=== PATIENT | female | born 1945 | race Caucasian/White ===

== ENCOUNTER → 2018-01-09 | Outpatient (CLI) | payer MEDICARE ==
[2018-01-09 13:26] LABS: Basophils % (A) 0 %; Eosinophils # (A) 0.1 k/uL (0-0.7); Eosinophils % (A) 1 %; HCT 42.8 % (34.0-46.0); Lymphocytes # (A) 0.6 k/uL (1.0-4.8); Lymphocytes % (A) 7 %; MCH 29.6 pg (25.0-35.0); MCHC 32.7 g/dL (31.0-37.0); MCV 90.6 fL (80.0-100.0); Monocytes # (A) 0.5 k/uL (0-1.0); Monocytes % (A) 6 %; Neutrophils # (A) 7.5 k/uL (1.3-7.7); Neutrophils % (A) 85 %; Platelet Count 379 k/uL (150-450); RBC 4.73 m/uL (3.80-5.40); RDW 12.1 % (11.5-15.5); WBC 8.8 k/uL (3.8-10.6)
[2018-01-09 13:34] LABS: ALT 18 U/L (9-52); AST 20 U/L (14-36); Blood Urea Nitrogen 9 mg/dL (7-17)
[2018-01-09 13:49] LABS: T4, Free (Free Thyroxine) 0.95 ng/dL (0.78-2.19)
== END | disposition home or self-care (01) ==
LOC: LABWHC1 11:50
PROVIDERS: ATTEND Dermatology
DX: L30.8 Other specified dermatitis (principal)
CPT/HCPCS: 36415; 82565; 84439; 84443; 84450; 84460; 84520; 85025

== ENCOUNTER → 2020-03-14 | Outpatient (CLI) | payer MEDICARE ==
--- NOTE | 2020-03-15 09:55 | XR ---
EXAMINATION TYPE: XR lumbosacral spine min 4V DATE OF EXAM: 03/14/2020 CLINICAL HISTORY: Increasing chronic low back pain TECHNIQUE: Frontal, lateral, and oblique images of the lumbar spine are obtained. COMPARISON: None FINDINGS: Grade 1 anterolisthesis of L4 on L5 is seen as well as very minimal grade 1 anterolisthesis of L3 on L4. There is a minimal compression deformity of L3 with vertebral body height loss of less than 10%. There is also a compression deformity of T12 with vertebral body height loss of approximate ly 40%. These are age-indeterminate without priors for comparison. Moderate degenerative change demon strated as intervertebral disc space narrowing, anterior osteophytes, and facet arthropathy with endp late sclerosis at L5-S1. There is diffuse osseous demineralization. Moderate atherosclerosis of the a bdominal aorta. IMPRESSION: 1. Age indeterminant compression deformities of T12 and L3. Correlate for point tenderness. 2. Multilevel malalignment likely on a degenerative basis with moderate degenerative disc disease of the lumbar spine. 3. Diffuse osseous demineralization. A Yellow level critical message alert has been initiated for NATALI Ward via the [employer] Critical Results System on 03/15/2020 9:53 AM. This message alert has been sent to NATALI Ward via the preferences provided by the clinician for the receipt of Radiology Critical Find ings. Message ID [id number].
== END | disposition home or self-care (01) ==
LOC: RADXRYALE 15:26
PROVIDERS: ATTEND Physician Assistant Medical
DX: M54.5 Low back pain (principal); R53.1 Weakness
CPT/HCPCS: 72110

== ENCOUNTER 2021-12-08 16:14 | Inpatient (IN) | payer MEDICARE ==
--- NOTE | 2021-12-08 17:51 | ED ---
Altered Mental Status HPI - General Chief Complaint: Altered Mental Status Stated Complaint: altered mental status, weakness Source: patient, EMS Mode of arrival: EMS Limitations: altered mental status - History of Present Illness Initial Comments: 76-year-old female who does not see a primary care doctor resents to the emergency department for confusion. The patient's daughter helps provide the history. States that she last saw her mom at 7:30 yesterday. The patient does live alone. States that she has been more confused over the past couple of months however normally alert and oriented 4. She attempted to contact her mother earlier today and was having difficulty. She then called police who did a well check and found the patient on the floor. Unknown how long the patient had been down for. Patient denies hitting her head or losing consciousness. He cannot describe to me why she was unable to get up on her own. She denies any injuries from the fall. Denies any syncope. She does not see a physician and therefore has no known medical problems. Does not take any home medications. The remainder of the HPI is unable to be obtained as the patient is confused - Related Data Previous Rx's Medication Instructions Recorded Magnesium Oxide [Mag-Ox] 400 mg PO BID #6 tablet 12/11/21 Potassium Chloride ER [K-Dur 20] 20 meq PO DAILY #3 tab 12/11/21 QUEtiapine [SEROquel] 12.5 mg PO HS PRN #0 tab 12/11/21 Sertraline [Zoloft] 25 mg PO DAILY #0 tab 12/11/21 Famotidine [Pepcid] 20 mg PO DAILY tab 12/12/21 Allergies Allergy/AdvReac Type Severity Reaction Status Date / Time No Known Allergies Allergy Verified 12/08/21 17:23 Review of Systems ROS Statement: Those systems with pertinent positive or pertinent negative responses have been documented in the HPI. ROS Other: All systems not noted in ROS Statement are negative. Past Medical History Past Medical History: Unable to Obtain History of Any Multi-Drug Resistant Organisms: None Reported Past Surgical History: Unable to Obtain Past Psychological History: No Psychological Hx Reported Smoking Status: Never smoker Past Alcohol Use History: Occasional Past Drug Use History: None Reported General Exam Limitations: altered mental status General appearance: alert, in no apparent distress, other (dissheveled) Head exam: Present: atraumatic, normocephalic, normal inspection Eye exam: Present: normal appearance, PERRL, EOMI. Absent: scleral icterus, conjunctival injection, periorbital swelling ENT exam: Present: normal exam, mucous membranes moist Neck exam: Present: normal inspection. Absent: tenderness, meningismus, lymphadenopathy Respiratory exam: Present: normal lung sounds bilaterally. Absent: respiratory distress, wheezes, rales, rhonchi, stridor Cardiovascular Exam: Present: regular rate, normal rhythm, normal heart sounds. Absent: systolic murmur, diastolic murmur, rubs, gallop, clicks GI/Abdominal exam: Present: soft, normal bowel sounds. Absent: distended, tenderness, guarding, rebound, rigid Extremities exam: Present: normal inspection, full ROM, normal capillary refill. Absent: tenderness, pedal edema, joint swelling, calf tenderness Back exam: Present: normal inspection Neurological exam: Present: alert, CN II-XII intact Psychiatric exam: Present: normal affect, normal mood Skin exam: Present: warm, dry, intact, normal color. Absent: rash Course Vital Signs 12/08/21 12/08/21 16:44 22:30 Temperature 98.3 F Pulse Rate 94 94 Respiratory 18 18 Rate Blood Pressure 169/95 161/82 O2 Sat by Pulse 99 99 Oximetry Medical Decision Making - Medical Decision Making Upon arrival patient was placed in room 3. A thorough history and physical exam was performed. Patient is saturated in feces and urine. The daughter does state that the patient has had issues with incontinence over the past couple of months. IV access was established laboratory studies were conducted. Patient hyponatremic at 124. Daughter states that the patient has a very poor appetite and hardly ever eats. Albumin slightly low at 3.4. Chest x-ray as well as a CT of the brain is performed. Chest x-ray demonstrates cerebral atrophy with no acute abnormality. Chest x-ray demonstrates small pleural effusions. Did recommend admission as it does not appear that the patient can care for herself. Normal saline is ordered for treatment of her hypernatremia. Spoke with Sia from [facility] who will admit the patient. Patient remained in stable conditio n awaiting a bed on the floor - Lab Data Result diagrams: 12/09/21 04:24 12/12/21 05:39 Lab Results 12/08/21 12/08/21 12/08/21 Range/Units 17:43 17:43 17:43 WBC 10.8 H (3.8-10.6) k/uL RBC 4.26 (3.80-5.40) m/uL Hgb 13.0 (11.4-16.0) gm/dL Hct 37.1 (34.0-46.0) % MCV 87.2 (80.0-100.0) fL MCH 30.4 (25.0-35.0) pg MCHC 34.9 (31.0-37.0) g/dL RDW 13.1 (11.5-15.5) % Plt Count 374 (150-450) k/uL MPV 6.4 Neutrophils % 89 % Lymphocytes % 5 % Monocytes % 4 % Eosinophils % 1 % Basophils % 0 % Neutrophils # 9.6 H (1.3-7.7) k/uL Lymphocytes # 0.6 L (1.0-4.8) k/uL Monocytes # 0.5 (0-1.0) k/uL Eosinophils # 0.1 (0-0.7) k/uL Basophils # 0.0 (0-0.2) k/uL PT 10.4 (9.0-12.0) sec INR 0.9 (<1.2) APTT 23.5 (22.0-30.0) sec Sodium (137-145) mmol/L Potassium (3.5-5.1) mmol/L Chloride (98-107) mmol/L Carbon Dioxide (22-30) mmol/L Anion Gap mmol/L BUN (7-17) mg/dL Creatinine (0.52-1.04) mg/dL Est GFR (CKD-EPI)AfAm (>60 ml/min/1.73 sqM) Est GFR (CKD-EPI)NonAf (>60 ml/min/1.73 sqM) Glucose (74-99) mg/dL Calcium (8.4-10.2) mg/dL Total Bilirubin (0.2-1.3) mg/dL AST (14-36) U/L ALT (4-34) U/L Alkaline Phosphatase (38-126) U/L Ammonia (<30) umol/L Creatine Kinase (30-135) U/L Troponin I (0.000-0.034) ng/mL Total Protein (6.3-8.2) g/dL Albumin (3.5-5.0) g/dL TSH (0.465-4.680) mIU/L Urine Color Colorless Urine Appearance Clear (Clear) Urine pH 6.5 (5.0-8.0) Ur Specific [place] 1.002 (1.001-1.035) Urine Protein Negative (Negative) Urine Glucose (UA) Negative (Negative) Urine Ketones Trace H (Negative) Urine Blood Negative (Negative) Urine Nitrite Negative (Negative) Urine Bilirubin Negative (Negative) Urine Urobilinogen <2.0 (<2.0) mg/dL Ur Leukocyte Esterase Negative (Negative) Urine Opiates Screen Not Detected (NotDetected) Ur Oxycodone Screen Not Detected (NotDetected) Urine Methadone Screen Not Detected (NotDetected) Ur Propoxyphene Screen Not Detected (NotDetected) Acetaminophen ug/mL Ur Barbiturates Screen Not Detected (NotDetected) U Tricyclic Antidepress Not Detected (NotDetected) Ur Phencyclidine Scrn Not Detected (NotDetected) Ur Amphetamines Screen Not Detected (NotDetected) U Methamphetamines Scrn Not Detected (NotDetected) U Benzodiazepines Scrn Not Detected (NotDetected) Urine Cocaine Screen Not Detected (NotDetected) U Marijuana (THC) Screen Not Detected (NotDetected) Serum Alcohol mg/dL 12/08/21 12/08/21 12/08/21 Range/Units 17:43 17:43 17:43 WBC (3.8-10.6) k/uL RBC (3.80-5.40) m/uL Hgb (11.4-16.0) gm/dL Hct (34.0-46.0) % MCV (80.0-100.0) fL MCH (25.0-35.0) pg MCHC (31.0-37.0) g/dL RDW (11.5-15.5) % Plt Count (150-450) k/uL MPV Neutrophils % % Lymphocytes % % Monocytes % % Eosinophils % % Basophils % % Neutrophils # (1.3-7.7) k/uL Lymphocytes # (1.0-4.8) k/uL Monocytes # (0-1.0) k/uL Eosinophils # (0-0.7) k/uL Basophils # (0-0.2) k/uL PT (9.0-12.0) sec INR (<1.2) APTT (22.0-30.0) sec Sodium 124 L (137-145) mmol/L Potassium 3.6 (3.5-5.1) mmol/L Chloride 98 (98-107) mmol/L Carbon Dioxide 16 L (22-30) mmol/L Anion Gap 10 mmol/L BUN 5 L (7-17) mg/dL Creatinine 0.45 L (0.52-1.04) mg/dL Est GFR (CKD-EPI)AfAm >90 (>60 ml/min/1.73 sqM) Est GFR (CKD-EPI)NonAf >90 (>60 ml/min/1.73 sqM) Glucose 96 (74-99) mg/dL Calcium 8.0 L (8.4-10.2) mg/dL Total Bilirubin 1.5 H (0.2-1.3) mg/dL AST 29 (14-36) U/L ALT 12 (4-34) U/L Alkaline Phosphatase 76 (38-126) U/L Ammonia <9 (<30) umol/L Creatine Kinase 457 H (30-135) U/L Troponin I 0.013 (0.000-0.034) ng/mL Total Protein 6.4 (6.3-8.2) g/dL Albumin 3.4 L (3.5-5.0) g/dL TSH 1.400 (0.465-4.680) mIU/L Urine Color Urine Appearance (Clear) Urine pH (5.0-8.0) Ur Specific [place] (1.001-1.035) Urine Protein (Negative) Urine Glucose (UA) (Negative) Urine Ketones (Negative) Urine Blood (Negative) Urine Nitrite (Negative) Urine Bilirubin (Negative) Urine Urobilinogen (<2.0) mg/dL Ur Leukocyte Esterase (Negative) Urine Opiates Screen (NotDetected) Ur Oxycodone Screen (NotDetected) Urine Methadone Screen (NotDetected) Ur Propoxyphene Screen (NotDetected) Acetaminophen <10.0 ug/mL Ur Barbiturates Screen (NotDetected) U Tricyclic Antidepress (NotDetected) Ur Phencyclidine Scrn (NotDetected) Ur Amphetamines Screen (NotDetected) U Methamphetamines Scrn (NotDetected) U Benzodiazepines Scrn (NotDetected) Urine Cocaine Screen (NotDetected) U Marijuana (THC) Screen (NotDetected) Serum Alcohol <10 mg/dL - EKG Data EKG Comments: EKG demonstrates sinus rhythm with a rate of 92. GA interval 164. Rest 90. QTC of 425. No acute ST segment elevations or depressions concerning for ischemic changes. Disposition Clinical Impression: Fall, Hyponatremia, Encephalopathy Disposition: ADMITTED IP TO THIS [facility] Condition: Stable Is patient prescribed a controlled substance at d/c from ED?: No Decision to Admit Reason: Admit from EC Decision Date: 12/08/21 Decision Time: 21:57
[2021-12-08 18:00] LABS: Basophils % (A) 0 %; Eosinophils # (A) 0.1 k/uL (0-0.7); Eosinophils % (A) 1 %; HCT 37.1 % (34.0-46.0); Lymphocytes # (A) 0.6 k/uL (1.0-4.8); Lymphocytes % (A) 5 %; MCH 30.4 pg (25.0-35.0); MCHC 34.9 g/dL (31.0-37.0); MCV 87.2 fL (80.0-100.0); Mean Platelet Volume 6.4; Monocytes # (A) 0.5 k/uL (0-1.0); Monocytes % (A) 4 %; Neutrophils # (A) 9.6 k/uL (1.3-7.7); Neutrophils % (A) 89 %; Platelet Count 374 k/uL (150-450); RBC 4.26 m/uL (3.80-5.40); RDW 13.1 % (11.5-15.5); WBC 10.8 k/uL (3.8-10.6)
--- NOTE | 2021-12-08 18:07 | XR ---
EXAMINATION TYPE: XR chest 2V DATE OF EXAM: 12/08/2021 COMPARISON: NONE HISTORY: Altered mental status TECHNIQUE: 2 views FINDINGS: There is no heart failure nor confluent pneumonic infiltrate. There is slight blunting of t he costophrenic angles. Thoracic aorta is atheromatous. There are chest leads. IMPRESSION: There are small pleural effusions. No heart failure seen. No pulmonary consolidation.
[2021-12-08 18:08] LABS: ALT 12 U/L (4-34); AST 29 U/L (14-36); Acetaminophen <10.0 ug/mL; African American GFR (CKD) >90 (>60 ml/min/1.73 sqM); Albumin 3.4 g/dL (3.5-5.0); Alcohol <10 mg/dL; Alkaline Phosphatase 76 U/L (38-126); Anion Gap 10 mmol/L; Blood Urea Nitrogen 5 mg/dL (7-17); Carbon Dioxide 16 mmol/L (22-30); Chloride 98 mmol/L (98-107); Creatine Kinase 457 U/L (30-135); Glucose 96 mg/dL (74-99); Non-African American GFR(CKD) >90 (>60 ml/min/1.73 sqM); Potassium 3.6 mmol/L (3.5-5.1); Sodium 124 mmol/L (137-145); Total Bilirubin 1.5 mg/dL (0.2-1.3); Total Protein 6.4 g/dL (6.3-8.2)
[2021-12-08 18:09] LABS: INR 0.9 (<1.2); Partial Thromboplastin Time 23.5 sec (22.0-30.0); Prothrombin Time 10.4 sec (9.0-12.0)
--- NOTE | 2021-12-08 18:48 | CT ---
EXAMINATION TYPE: CT brain jeannine singh con DATE OF EXAM: 12/08/2021 COMPARISON: None HISTORY: Altered mental status and fall. CT DLP: 1221.7 mGycm Automated exposure control for dose reduction was used. There is cerebral cortical atrophy. There is no mass effect or midline shift. There is no evidence of intracranial hemorrhage. The calvarium is intact. There is mucous retention cyst right maxillary sin us. Skull base is intact. There is normal aeration of the mastoid sinuses. The cervical vertebra have normal alignment. Posterior elements are intact. There is no compression f racture. There is minor spurring in the cervical spine. IMPRESSION: Cerebral atrophy. No acute intracranial abnormality. Minor degenerative changes in the cervical spine . No fracture.
[2021-12-08] MEDS ORDERED: SODIUM CHLORIDE 0.9% 1,000 ML IV ONE (18:54)
[2021-12-08 19:51] LABS: Appearance,Urine Clear (Clear); Bilirubin,Urine Negative (Negative); Blood,Urine Negative (Negative); Color,Urine Colorless; Glucose,Urine (UA) Negative (Negative); Ketones,Urine Trace (Negative); Leukocyte Esterase,Urine Negative (Negative); Nitrite,Urine Negative (Negative); PH, Urine 6.5 (5.0-8.0); Protein,Urine Negative (Negative); Specific Gravity,Urine 1.002 (1.001-1.035); Urobilinogen,Urine <2.0 mg/dL (<2.0)
[2021-12-08 20:00] LABS: Amphetamine Screen,Urine Not Detected (NotDetected); Barbiturate Screen,Urine Not Detected (NotDetected); Benzodiazepines Screen,Urine Not Detected (NotDetected); Cocaine Screen,Urine Not Detected (NotDetected); Methadone Screen, Urine Not Detected (NotDetected); Opiate Screen,Urine Not Detected (NotDetected); Oxycodone Screen, Urine Not Detected (NotDetected); Phencyclidine Screen,Urine Not Detected (NotDetected); Tricyclic Antidepressant,Urine Not Detected (NotDetected); Urn Cannabinoid Scrn Not Detected (NotDetected)
[2021-12-08] MEDS: SODIUM CHLORIDE 0.9% 1,000 ML IV SCH (21:28)
[2021-12-08] MEDS ORDERED: NALOXONE 0.4 MG/ML 1 ML VIAL IV PRN (21:57)
[2021-12-09 05:15] LABS: Basophils % (A) 0 %; Eosinophils # (A) 0.1 k/uL (0-0.7); Eosinophils % (A) 2 %; HCT 32.9 % (34.0-46.0); HGB 11.5 gm/dL (11.4-16.0); Lymphocytes # (A) 0.9 k/uL (1.0-4.8); Lymphocytes % (A) 16 %; MCH 31.2 pg (25.0-35.0); MCHC 35.1 g/dL (31.0-37.0); MCV 88.9 fL (80.0-100.0); Mean Platelet Volume 6.8; Monocytes # (A) 0.5 k/uL (0-1.0); Monocytes % (A) 8 %; Neutrophils # (A) 4.1 k/uL (1.3-7.7); Neutrophils % (A) 72 %; Platelet Count 358 k/uL (150-450); RDW 12.4 % (11.5-15.5); WBC 5.7 k/uL (3.8-10.6)
[2021-12-09 05:50] LABS: African American GFR (CKD) >90 (>60 ml/min/1.73 sqM); Anion Gap 7 mmol/L; Blood Urea Nitrogen 4 mg/dL (7-17); Calcium 8.4 mg/dL (8.4-10.2); Carbon Dioxide 18 mmol/L (22-30); Chloride 107 mmol/L (98-107); Glucose 81 mg/dL (74-99); Non-African American GFR(CKD) >90 (>60 ml/min/1.73 sqM); Potassium 3.5 mmol/L (3.5-5.1); Sodium 132 mmol/L (137-145)
[2021-12-09] MEDS: SODIUM CHLORIDE 0.9% 1,000 ML IV SCH ×2 (08:33→11:59)
--- NOTE | 2021-12-09 11:51 | P.HPIM ---
History of Present Illness Patient is a pleasant 78-year-old female came in with a mechanical fall without any syncopal episode. Patient usually lives by herself but was found by family members after she fell. Patient was brought to ER. Apparently patient was confused as per the family members although by the time of ER physician evaluation patient is alert oriented 4. Patient is found to be hyponatremic because of which patient was admitted. Patient denied any diarrhea nausea vomiting at this time. Patient did denied any fever intake but patient used to drink 10-15 beers which she quit about 3 months ago. Patient did denied any previous history denied any smoking history. Patient does have long nails which tells me that patient probably is not taking care of for herself very well. Rest of the workup including imaging studies for any fractures post fall are all negative. REVIEW OF SYSTEMS: CONSTITUTIONAL: No fever, no malaise, no fatigue. HEENT: No recent visual problems or hearing problems. Denied any sore throat. CARDIOVASCULAR: No chest pain, orthopnea, PND, no palpitations, no syncope. PULMONARY: No shortness of breath, no cough, no hemoptysis. GASTROINTESTINAL: No diarrhea, no nausea, no vomiting, no abdominal pain. NEUROLOGICAL: No headaches, no weakness, no numbness. HEMATOLOGICAL: Denies any bleeding or petechiae. GENITOURINARY: Denies any burning micturition, frequency, or urgency. MUSCULOSKELETAL/RHEUMATOLOGICAL: Denies any joint pain, swelling, or any muscle pain. ENDOCRINE: Denies any polyuria or polydipsia. The rest of the 14-point review of systems is negative. PHYSICAL EXAMINATION: GENERAL: The patient is alert and oriented x3, not in any acute distress. Well developed, well nourished. HEENT: Pupils are round and equally reacting to light. EOMI. No scleral icterus. No conjunctival pallor. Normocephalic, atraumatic. No pharyngeal erythema. No thyromegaly. CARDIOVASCULAR: S1 and S2 present. No murmurs, rubs, or gallops. PULMONARY: Chest is clear to auscultation, no wheezing or crackles. ABDOMEN: Soft, nontender, nondistended, normoactive bowel sounds. No palpable organomegaly. MUSCULOSKELETAL: No joint swelling or deformity. EXTREMITIES: No cyanosis, clubbing, or pedal edema. NEUROLOGICAL: Gross neurological examination did not reveal any focal deficits. SKIN: No rashes. Assessment and plan 1 hyponatremia probably secondary to hypovolemia and a competent of beer pot amania, serum sodium improved by about 8 points since yesterday from 124 to 130 because of which I'm slowing down on IV normal saline to prevent central pontine myelenolysis. -Generalized weakness: Physical therapy and occupational therapy evaluation -History of alcohol use: DVT prophylaxis: Lovenox Past Medical History Past Medical History: Unable to Obtain History of Any Multi-Drug Resistant Organisms: None Reported Past Surgical History: Unable to Obtain Past Psychological History: No Psychological Hx Reported Smoking Status: Never smoker Past Alcohol Use History: Occasional Past Drug Use History: None Reported Medications and Allergies Home Medications Medication Instructions Recorded Confirmed Type No Known Home Medications 12/08/21 12/08/21 History Allergies Allergy/AdvReac Type Severity Reaction Status Date / Time No Known Allergies Allergy Verified 12/08/21 17:23 Physical Exam Vitals: Vital Signs Temp Pulse Pulse Resp BP BP Pulse Ox 12/09/21 07:11 98.2 F 89 17 133/69 99 12/09/21 01:05 98.4 F 99 17 180/83 99 12/08/21 22:30 94 18 161/82 99 12/08/21 16:44 98.3 F 94 18 169/95 99 Intake and Output 12/08/21 12/09/21 12/09/21 22:59 06:59 14:59 Intake Total 1800 Output Total 100 Balance 1800 -100 Intake: Intake, IV Titration 900 Amount Sodium Chloride 0.9% 1, 900 000 ml @ 75 mls/hr IV . [id number] [facility] Rx#:[id number] Oral 900 Output: Urine 100 Uretheral (Lopez) 100 Other: Voiding Method Indwelling Catheter Weight 54.885 kg Results CBC & Chem 7: 12/09/21 04:24 12/09/21 04:24 Labs: Abnormal Lab Results - Last 24 Hours (Table) 12/08/21 12/08/21 12/08/21 Range/Units 17:43 17:43 17:43 WBC 10.8 H (3.8-10.6) k/uL RBC (3.80-5.40) m/uL Hct (34.0-46.0) % Neutrophils # 9.6 H (1.3-7.7) k/uL Lymphocytes # 0.6 L (1.0-4.8) k/uL Sodium 124 L (137-145) mmol/L Carbon Dioxide 16 L (22-30) mmol/L BUN 5 L (7-17) mg/dL Creatinine 0.45 L (0.52-1.04) mg/dL Calcium 8.0 L (8.4-10.2) mg/dL Total Bilirubin 1.5 H (0.2-1.3) mg/dL Creatine Kinase 457 H (30-135) U/L Albumin 3.4 L (3.5-5.0) g/dL Urine Ketones Trace H (Negative) 12/09/21 12/09/21 Range/Units 04:24 04:24 WBC (3.8-10.6) k/uL RBC 3.70 L (3.80-5.40) m/uL Hct 32.9 L (34.0-46.0) % Neutrophils # (1.3-7.7) k/uL Lymphocytes # 0.9 L (1.0-4.8) k/uL Sodium 132 L (137-145) mmol/L Carbon Dioxide 18 L (22-30) mmol/L BUN 4 L (7-17) mg/dL Creatinine (0.52-1.04) mg/dL Calcium (8.4-10.2) mg/dL Total Bilirubin (0.2-1.3) mg/dL Creatine Kinase (30-135) U/L Albumin (3.5-5.0) g/dL Urine Ketones (Negative)
[2021-12-09] MEDS: SERTRALINE 25 MG TAB PO SCH (12:27)
[2021-12-10] MEDS: SERTRALINE 25 MG TAB PO SCH (08:23)
[2021-12-10] MEDS: ENOXAPARIN 40 MG/0.4 ML SYRINGE SQ SCH (08:23)
[2021-12-10] MEDS: SODIUM CHLORIDE 0.9% 1,000 ML IV SCH (08:23)
[2021-12-10 08:56] LABS: African American GFR (CKD) 107.4 (60.0-200.0); Anion Gap 13.7 mmol/L (10.00-18.00); BUN/Creat Ratio 6.2 Ratio (12.00-20.00); Blood Urea Nitrogen 3.1 mg/dL (9.0-27.0); Calcium 8.6 mg/dL (8.7-10.3); Carbon Dioxide 16.3 mmol/L (20.0-27.5); Non-African American GFR(CKD) 92.7 (60.0-200.0); Potassium 3.6 mmol/L (3.5-5.5)
[2021-12-10] MEDS ORDERED: QUEtiapine 25 MG TAB PO PRN (10:35)
--- NOTE | 2021-12-10 10:35 | P.HPIM ---
History of Present Illness Patient is a pleasant 78-year-old female came in with a mechanical fall without any syncopal episode. Patient usually lives by herself but was found by family members after she fell. Patient was brought to ER. Apparently patient was confused as per the family members although by the time of ER physician evaluation patient is alert oriented 4. Patient is found to be hyponatremic because of which patient was admitted. Patient denied any diarrhea nausea vomiting at this time. Patient did denied any fever intake but patient used to drink 10-15 beers which she quit about 3 months ago. Patient did denied any previous history denied any smoking history. Patient does have long nails which tells me that patient probably is not taking care of for herself very well. Rest of the workup including imaging studies for any fractures post fall are all negative. 12/10/2021 Patient is alert oriented 2 looks bit better than yesterday. Patient's hyponatremia improved and presently serum sodium is 134 continue with gentle hy dration. Physical therapy and occupational therapy evaluation pending patient probably will need placement at subacute rehabitation. Constitutional: Denied any fatigue denied any fever. Cardio vascular: denied any chest pain, palpitations Gastrointestinal denied any nausea vomiting Pulmonary: Denied any shortness of breath cough Neurologic denied any new focal deficits All inpatient medications were reviewed and appropriate changes in these medications as dictated in the interval history and assessment and plan. PHYSICAL EXAMINATION: GENERAL: The patient is alert and oriented x2, not in any acute distress. Well developed, well nourished. HEENT: Pupils are round and equally reacting to light. EOMI. No scleral icterus. No conjunctival pallor. Normocephalic, atraumatic. No pharyngeal erythema. No thyromegaly. CARDIOVASCULAR: S1 and S2 present. No murmurs, rubs, or gallops. PULMONARY: Chest is clear to auscultation, no wheezing or crackles. ABDOMEN: Soft, nontender, nondistended, normoactive bowel sounds. No palpable organomegaly. MUSCULOSKELETAL: No joint swelling or deformity. EXTREMITIES: No cyanosis, clubbing, or pedal edema. NEUROLOGICAL: Gross neurological examination did not reveal any focal deficits. SKIN: No rashes. 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 -Generalized weakness: Physical therapy and occupational therapy evaluation -History of alcohol use: DVT prophylaxis: Lovenox Past Medical History Past Medical History: Unable to Obtain History of Any Multi-Drug Resistant Organisms: None Reported Past Surgical History: Unable to Obtain Past Psychological History: No Psychological Hx Reported Smoking Status: Never smoker Past Alcohol Use History: Occasional Past Drug Use History: None Reported Medications and Allergies Home Medications Medication Instructions Recorded Confirmed Type No Known Home Medications 12/08/21 12/08/21 History Allergies Allergy/AdvReac Type Severity Reaction Status Date / Time No Known Allergies Allergy Verified 12/08/21 17:23 Physical Exam Vitals: Vital Signs Temp Pulse Resp BP Pulse Ox 12/10/21 07:07 98.2 F 71 18 168/75 99 12/10/21 02:00 98.7 F 66 16 157/67 95 12/09/21 19:08 98.1 F 80 16 150/69 99 12/09/21 13:02 97.3 F L 74 18 128/62 99 Intake and Output 12/09/21 12/10/21 12/10/21 22:59 06:59 14:59 Intake Total 650 Output Total 350 950 Balance 300 -950 Intake: Intake, IV Titration 650 Amount Sodium Chloride 0.9% 1, 650 000 ml @ 50 mls/hr IV . Q20H [facility] Rx#:[id number] Output: Urine 350 950 Uretheral (Lopez) 350 Other: Voiding Method Indwelling Catheter Indwelling Catheter Results CBC & Chem 7: 12/09/21 04:24 12/10/21 03:03 Labs: Abnormal Lab Results - Last 24 Hours (Table) 12/10/21 Range/Units 03:03 Sodium 134 L (135-145) mmol/L Carbon Dioxide 16.3 L (20.0-27.5) mmol/L BUN 3.1 L (9.0-27.0) mg/dL Creatinine 0.5 L (0.6-1.5) mg/dL BUN/Creatinine Ratio 6.20 L (12.00-20.00) Ratio Calcium 8.6 L (8.7-10.3) mg/dL
[2021-12-11] MEDS: SODIUM CHLORIDE 0.9% 1,000 ML IV SCH ×2 (05:27→12:08)
[2021-12-11] MEDS: ENOXAPARIN 40 MG/0.4 ML SYRINGE SQ SCH (07:50)
[2021-12-11] MEDS: SERTRALINE 25 MG TAB PO SCH (07:50)
[2021-12-11] MEDS ORDERED: Magnesium Replacement Protocol 1 EACH MISC MISCELLANE PRN (08:54)
[2021-12-11] MEDS: MAGNESIUM SULFATE-D5W PMX 1 GM in DEXTROSE/WATER 1 100ML.BAG IVPB SCH ×2 (12:11→14:19)
[2021-12-11] MEDS ORDERED: POTASSIUM CHLORIDE ER 20 MEQ TAB.ER PO STA (12:11)
--- NOTE | 2021-12-11 12:28 | P.DS ---
Providers Date of admission: 12/08/21 21:57 Attending physician: Bee Troy Primary care physician: Geronimo Rios Hospital Course: Final Diagnosis -Hyponatremia probably secondary to hypovolemia with a component of beer potamania, sodium 135 -Altered mental status on admission possibly due to a baseline mild dementia with history of chronic alcohol abuse, patient alert x2 today -Generalized weakness: Will be discharged to subacute rehab -History of chronic alcohol abuse, currently denies any recent drinking -Full Code Discharge Disposition Patient stable today for discharge to subacute rehab with repeat electrolytes completed in 2 days. Hospital Course This is a pleasant 76-year-old female who presents to the hospital from EMS with acute confusion. The patient does not usually follow with a primary care doctor, per the patient's daughter she had last seen her mom on the evening of December 07 and she is usually alert and oriented 4 however she has been having increased confusion over the last couple of months. The patient's daughter was unable to get ahold of her mother placed in a well check and found the patient on the floor with an unknown how long patient had been down for her. Patient denies hitting her head or losing consciousness she cannot get up on her own. Patient denies any injuries from the fall denied any syncope. Patient is not currently on any home medications. Past medical history significant for chronic alcohol abuse with 10-12 beers per day, recently stopped about 3 months ago, and patient verbalizes she is currently not drinking any alcohol. Patient remains a poor historian. Diagnostics include: Chest x-ray shows small pleural effusion with no heart failure and no pulmonary consolidation. CT brain C-spine shows cerebral atrophy with no acute intracranial abnormality. There are many minor degenerative changes in the cervical spine with no fracture. EKG shows sinus rhythm with a heart rate of 92, QT interval [address] or T- wave abnormalities present. Urinalysis is negative for infection Labs on admission show a white count 10.8, sodium 124, CO2 16, BUN 5, creatinine 0.45, blood glucose in the 90s, A1c 5.4, magnesium 1.6, total bili 1.5, creatinine kinase 457, troponin negative, TSH 1.400, urine drug toxicology negative, serum alcohol less than 10. Patient was monitored and initiated on gentle hydration with 0.9 normal saline and sodium level has since improved to 135. 12/11/2021 Patient underwent physical therapy evaluation today who is recommending subacute rehab with 29/04 care. Patient evaluated today resting in bed, no acute events overnight. She is alert and able to state name, date of , and the year. Slightly confused about location, but knew she was not at home. Patient was sleeping though prior to assessment. Vitals are stable today, afebrile, heart rate 77, blood pressure 151/71, 98% on room air. She denies any chest pain, shortness of breath, abdominal pain. Patient has been eating about 50% of her meals and would benefit from ensure protein drinks for additional nutritional support. Most recent labs show sodium level increased to 135 with gentle hydration and patient will have this rechecked in 2 days. Continue to encourage oral intake. Also potassium 3.6, magnesium 1.6, patient received supplementation today and 3 more days of oral supplementation with repeat labs in 2 days. Patient was also on small dose of sertraline in the past which was restarted this admission as well as a small dose of seroquel at bedtime. Lungs are clear, S1, S2 auscultated, abdomen is soft and nontender, focal neurological exam is negative. Patient may be discharged to subacute rehab today. Please see medication reconciliation for a list of current medications. Thank you for allowing us to participate in the care of this patient. Patient Condition at Discharge: Stable Plan - Discharge Summary Discharge Rx Participant: Yes New Discharge Prescriptions: New Potassium Chloride ER [K-Dur 20] 20 meq PO DAILY #3 tab Magnesium Oxide [Mag-Ox] 400 mg PO BID #6 tablet QUEtiapine [SEROquel] 12.5 mg PO HS PRN #0 tab PRN Reason: Agitation Sertraline [Zoloft] 25 mg PO DAILY #0 tab Discharge Medication List Magnesium Oxide [Mag-Ox] 400 mg PO BID #6 tablet 12/11/21 [Rx] Potassium Chloride ER [K-Dur 20] 20 meq PO DAILY #3 tab 12/11/21 [Rx] QUEtiapine [SEROquel] 12.5 mg PO HS PRN #0 tab 12/11/21 [Rx] Sertraline [Zoloft] 25 mg PO DAILY #0 tab 12/11/21 [Rx] Follow up Appointment(s)/Referral(s): Geronimo Rios DO [Primary Care Provider] - 1-2 days Ambulatory/Diagnostic Orders: Basic Metabolic Panel [LAB.AMB] Time Frame: 2 Days, Location: None Selected Magnesium [LAB.AMB] Time Frame: 2 Days, Location: None Selected Activity/Diet/Wound Care/Special Instructions: Repeat metabolic panel in 2 days Continue oral potassium, oral magnesium supplementation, adjust with repeated labs as needed. Discharge Disposition: TRANSFER TO SNF/ECF
[2021-12-12 07:35] VITALS: BP 167/90; PULSE 77; RESP 17; TEMP 98.6
[2021-12-12] MEDS: ENOXAPARIN 40 MG/0.4 ML SYRINGE SQ SCH (08:01)
[2021-12-12] MEDS: SODIUM CHLORIDE 0.9% 1,000 ML IV SCH (08:01)
[2021-12-12] MEDS: SERTRALINE 25 MG TAB PO SCH (08:01)
[2021-12-12] MEDS ORDERED: FAMOTIDINE 20 MG TAB PO SCH (09:00)
[2021-12-12 09:37] LABS: African American GFR (CKD) 101.2 (60.0-200.0); Anion Gap 11.6 mmol/L (10.00-18.00); BUN/Creat Ratio 5.17 Ratio (12.00-20.00); Blood Urea Nitrogen 3.1 mg/dL (9.0-27.0); Calcium 8.5 mg/dL (8.7-10.3); Carbon Dioxide 20.4 mmol/L (20.0-27.5); Magnesium 1.9 mg/dL (1.5-2.4); Non-African American GFR(CKD) 87.3 (60.0-200.0); Potassium 3.9 mmol/L (3.5-5.5)
--- NOTE | 2021-12-12 13:03 | P.DS ---
Providers Date of admission: 12/08/21 21:57 Expected date of discharge: 12/12/21 Attending physician: Bee Troy Primary care physician: Geronimo Delacruz Hospital Course: Final diagnosis -Hyponatremia probably secondary to hypovolemia with a component of beer potamania, sodium 135 -Altered mental status on admission possibly due to a baseline mild dementia with history of chronic alcohol abuse -Generalized weakness -History of chronic alcohol abuse, recently quit drinking 3 months ago -Full Code Discharge disposition Patient is being discharged in a stable condition with guarded prognosis to [facility] for continued PT/OT therapy. Patient to follow with Dr. Solomon at [facility]. Patient will follow-up with Dr. Delacruz in the outpatient setting upon discharge from [facility]. Recommend repeat labs in 2-3 days to monitor kidney functions and electrolytes. Total time taken is greater than 35 minutes. Hospital course This is a 76-year-old female who was recently admitted to the hospital for acute confusion and being closely monitored. Per daughter patient has been having increasing confusion that has been going on for the last few months and having increasing confusion along with weakness and has been falling.. Patient most recently stopped drinking alcohol a few months back and was significant for chronic alcohol abuse daily. Patient has been evaluated by physical therapy recommending subacute rehab and patient was accepted at [facility] pending insurance authorization. Authorization has been obtained and patient will be discharged to [facility] today for continued PT/OT therapy. Recommend outpatient labs to monitor electrolytes, magnesium, kidney functions closely. Patient to follow-up with primary care provider on discharge in the outpatient setting. Patient reports to continuing to feel weak but has reported an improvement in diet although continues to eat very little. Patient needs encouragement with eating. Patient was also admitted with hyponatremia and has improved and is currently 135. Currently no reports of chest pain, shortness of breath, or palpitations. Patient is afebrile. No reports of nausea or vomiting and patient is tolerating diet. Patient will be discharged to [facility] today. Guarded prognosis On exam vital signs are stable. Cardio S1, S2 are muffled. Respiratory system shows diminished breath sounds at the bases with no wheezing or rhonchi noted. Abdomen is soft and nontender. Nervous system shows diffuse weakness. Please refer to medication reconciliation sheet for a list of medications. The impression and plan of care has been dictated by Edna Becky, nurse practitioner as directed. MD Tha I have performed a history and examination and MDM of this patient, discussed the same with the dictator, and agree with the dictator's assessment and plan as written ,documented as a scribe. Based on total visit time, I have performed more than 50% of the visit. Total number of minutes spent on this visit, 10 minutes. Any additional findings or plans will be noted. Patient Condition at Discharge: Stable Plan - Discharge Summary Discharge Rx Participant: Yes New Discharge Prescriptions: New Famotidine [Pepcid] 20 mg PO DAILY tab Potassium Chloride ER [K-Dur 20] 20 meq PO DAILY #3 tab Magnesium Oxide [Mag-Ox] 400 mg PO BID #6 tablet QUEtiapine [SEROquel] 12.5 mg PO HS PRN #0 tab PRN Reason: Agitation Sertraline [Zoloft] 25 mg PO DAILY #0 tab Discharge Medication List Magnesium Oxide [Mag-Ox] 400 mg PO BID #6 tablet 12/11/21 [Rx] Potassium Chloride ER [K-Dur 20] 20 meq PO DAILY #3 tab 12/11/21 [Rx] QUEtiapine [SEROquel] 12.5 mg PO HS PRN #0 tab 12/11/21 [Rx] Sertraline [Zoloft] 25 mg PO DAILY #0 tab 12/11/21 [Rx] Famotidine [Pepcid] 20 mg PO DAILY tab 12/12/21 [Rx] Follow up Appointment(s)/Referral(s): Geronimo Delacruz DO [Primary Care Provider] - 1-2 days Ambulatory/Diagnostic Orders: Basic Metabolic Panel [LAB.AMB] Time Frame: 2 Days, Location: None Selected Magnesium [LAB.AMB] Time Frame: 2 Days, Location: None Selected Activity/Diet/Wound Care/Special Instructions: Repeat metabolic panel in 2 days Continue oral potassium, oral magnesium supplementation, adjust with repeated la bs as needed. Discharge Disposition: TRANSFER TO SNF/ECF
== END 2021-12-12 14:02 | DRG 641 ==
LOC: EC 16:14 → 4SSUR 21:57
PROVIDERS: ADMIT Hospitalist; ATTEND Hospitalist
DX: E87.1 Hypo-osmolality and hyponatremia (principal); G93.40 Encephalopathy, unspecified; F02.80 Dementia in other diseases classified elsewhere, unspecified severity, without behavioral disturbance, psychotic disturbance, mood disturbance, and anxiety; F10.20 Alcohol dependence, uncomplicated; G31.9 Degenerative disease of nervous system, unspecified; Z20.822 Contact with and (suspected) exposure to COVID-19; E86.1 Hypovolemia; Y90.0 Blood alcohol level of less than 20 mg/100 ml; R32 Unspecified urinary incontinence; Z79.899 Other long term (current) drug therapy; W18.30XA Fall on same level, unspecified, initial encounter
CPT/HCPCS: 36415; 70450; 71046; 72125; 80048; 80053; 80143; 80306; 80320; 81003; 82140; 82550; 83036; 83735; 84443; 84484; 85025; 85610; 85730; 87635; 93005; 96360; 96361; 99285

== ENCOUNTER → 2022-08-02 | Outpatient (CLI) | payer MEDICARE ==
--- NOTE | 2022-08-02 16:47 | MR ---
EXAMINATION TYPE: MR brain wo con DATE OF EXAM: 08/02/2022 COMPARISON: CT brain December 08, 2021 HISTORY: ATAXIA, UNSPECIFIED, UNABLE TO AMBULATE, WEAKNESS TECHNIQUE: Multiplanar, multisequence imaging of the brain and brainstem is performed without IV cont rast. FINDINGS: Diffusion weighted images demonstrate no evidence of a recent infarct or other diffusion abnormality. There is moderate diffuse ventricular and sulcal prominence with sulcal prominence greatest over the bilateral frontal and temporal lobes. There are multifocal and confluent areas of T2 hyperintensity s een throughout the white matter bilaterally greatest at the deep and periventricular levels. Midline structures redemonstrate normal morphology. The craniocervical junction appears within williams l limits. Normal vascular flow voids are present. The visualized sinuses are clear and the globes are intact. Nasal septum is redemonstrated deviated to the right of midline. IMPRESSION: There is mild to moderate diffuse cerebral atrophy greatest over the bilateral frontal an d temporal lobes with moderate to advanced chronic small vessel ischemic change.
== END | disposition home or self-care (01) ==
LOC: RADMRIMAIN 14:34
PROVIDERS: ATTEND Family Medicine
DX: R27.0 Ataxia, unspecified (principal); R29.6 Repeated falls; R15.9 Full incontinence of feces; M62.9 Disorder of muscle, unspecified; F03.90 Unspecified dementia, unspecified severity, without behavioral disturbance, psychotic disturbance, mood disturbance, and anxiety
CPT/HCPCS: 70551

== ENCOUNTER 2022-09-09 19:10 | Inpatient (IN) | payer MEDICARE ==
[2022-09-09] MEDS ORDERED: SODIUM CHLORIDE 0.9% 500 ML 500 ML IV STA (19:16)
[2022-09-09] MEDS ORDERED: SODIUM CHLORIDE 0.9% 1,000 ML IV STA (19:16)
--- NOTE | 2022-09-09 19:27 | ED ---
Abdominal Pain HPI - General Stated Complaint: UTI Time Seen by Provider: 09/09/22 19:10 Source: RN notes reviewed, old records reviewed - History of Present Illness Initial Comments: 76-year-old female with a history of hyponatremia believed to be secondary to beer pot a dru history dementia which is end-stage per report was brought in by EMS today because of possible abdominal pain and possible urinary tract infection. Apparently she has been cared for at home by family she then going in her abdomen and holding it recently. She's also will not keep the dressing on her decubitus ulcers on her coccyx/buttock region. She supposedly has been eating well and drinking well. No reports of fevers chills nausea vomiting s weats no fall or trauma. No focal deficits. Patient herself is a poor historian MD Complaint: abdominal pain - Related Data Home Medications Medication Instructions Recorded Confirmed Cholecalciferol [Vitamin D3 (25 50 mcg PO DAILY 09/09/22 09/09/22 Mcg = 1000 Iu)] Cyanocobalamin (Vitamin B-12) 1,000 mcg PO DAILY 09/09/22 09/09/22 [Vitamin B-12] Folic Acid 0.8 mg PO DAILY 09/09/22 09/09/22 Allergies Allergy/AdvReac Type Severity Reaction Status Date / Time No Known Allergies Allergy Verified 09/09/22 20:00 Review of Systems ROS Statement: Those systems with pertinent positive or pertinent negative responses have been documented in the HPI. ROS Other: All systems not noted in ROS Statement are negative. Limitations: ROS unobtainable due to patients medical condition Past Medical History Past Medical History: Unable to Obtain History of Any Multi-Drug Resistant Organisms: None Reported Past Surgical History: Unable to Obtain Past Psychological History: No Psychological Hx Reported Smoking Status: Never smoker Past Alcohol Use History: Occasional Past Drug Use History: None Reported General Exam - General Exam Comments Initial Comments: This is a well-developed thin appearing female who is awake alert but confused. Limitations: altered mental status General appearance: alert, in no apparent distress Head exam: Present: atraumatic, normocephalic, normal inspection Eye exam: Present: normal appearance, PERRL, EOMI. Absent: scleral icterus, conjunctival injection, periorbital swelling ENT exam: Present: mucous membranes dry Neck exam: Present: normal inspection, full ROM, other (Sensitivity or bruits). Absent: tenderness, meningismus, lymphadenopathy Respiratory exam: Present: normal lung sounds bilaterally. Absent: respiratory distress, wheezes, rales, rhonchi, stridor Cardiovascular Exam: Present: regular rate, normal rhythm, normal heart sounds. Absent: systolic murmur, diastolic murmur, rubs, gallop, clicks GI/Abdominal exam: Present: soft, normal bowel sounds. Absent: distended, tenderness, guarding, rebound, rigid, bruit, pulsatile mass Rectal exam: Present: other (Evidence of early stage decubitus ulcers on both buttock and coccyx. Skin breakdown noted small amount of dry blood noted. No eschar at this time) External exam: Present: normal external exam Extremities exam: Present: normal inspection, full ROM, normal capillary refill. Absent: tenderness, pedal edema, joint swelling, calf tenderness Back exam: Present: normal inspection, full ROM. Absent: tenderness Neurological exam: Present: alert, altered, CN II-XII intact Psychiatric exam: Present: flat affect Skin exam: Present: warm, dry, normal color. Absent: intact (As noted above), rash Course Vital Signs 09/09/22 19:32 Temperature 98.2 F Pulse Rate 67 Respiratory 18 Rate Blood Pressure 135/87 O2 Sat by Pulse 98 Oximetry Medical Decision Making - Medical Decision Making I did discuss findings with the patient's family who was present also with Sanjuana Veliz covering for Dr. Troy patient be admitted with neurological evaluation for increasing dementia IV fluids, treatment of UTI with antibiotics and wound care for the decubitus ulcerations. - Lab Data Result diagrams: 09/09/22 19:20 09/09/22 19:20 Lab Results 09/09/22 09/09/22 09/09/22 Range/Units 19:20 19:20 19:20 WBC 6.8 (3.8-10.6) k/uL RBC 3.90 (3.80-5.40) m/uL Hgb 12.2 (11.4-16.0) gm/dL Hct 35.0 (34.0-46.0) % MCV 89.8 (80.0-100.0) fL MCH 31.2 (25.0-35.0) pg MCHC 34.8 (31.0-37.0) g/dL RDW 12.5 (11.5-15.5) % Plt Count 253 (150-450) k/uL MPV 8.2 Neutrophils % 69 % Lymphocytes % 18 % Monocytes % 8 % Eosinophils % 4 % Basophils % 0 % Neutrophils # 4.7 (1.3-7.7) k/uL Lymphocytes # 1.2 (1.0-4.8) k/uL Monocytes # 0.5 (0-1.0) k/uL Eosinophils # 0.2 (0-0.7) k/uL Basophils # 0.0 (0-0.2) k/uL Sodium 136 L (137-145) mmol/L Potassium 3.5 (3.5-5.1) mmol/L Chloride 108 H (98-107) mmol/L Carbon Dioxide 24 (22-30) mmol/L Anion Gap 4 mmol/L BUN 7 (7-17) mg/dL Creatinine 0.43 L (0.52-1.04) mg/dL Est GFR (CKD-EPI)AfAm >90 (>60 ml/min/1.73 sqM) Est GFR (CKD-EPI)NonAf >90 (>60 ml/min/1.73 sqM) Glucose 107 H (74-99) mg/dL Plasma Lactic Acid Yusuf (0.7-2.0) mmol/L Calcium 7.8 L (8.4-10.2) mg/dL Total Bilirubin 0.5 (0.2-1.3) mg/dL AST 19 (14-36) U/L ALT 14 (4-34) U/L Alkaline Phosphatase 68 (38-126) U/L Creatine Kinase 31 (30-135) U/L Troponin I (0.000-0.034) ng/mL Total Protein 5.9 L (6.3-8.2) g/dL Albumin 3.1 L (3.5-5.0) g/dL Amylase 38 (30-110) U/L Lipase 128 (23-300) U/L Urine Color Light Yellow Urine Appearance Cloudy H (Clear) Urine pH 6.0 (5.0-8.0) Ur Specific [place] 1.007 (1.001-1.035) Urine Protein Negative (Negative) Urine Glucose (UA) Negative (Negative) Urine Ketones Negative (Negative) Urine Blood Negative (Negative) Urine Nitrite Negative (Negative) Urine Bilirubin Negative (Negative) Urine Urobilinogen <2.0 (<2.0) mg/dL Ur Leukocyte Esterase Large H (Negative) Urine RBC 1 (0-5) /hpf Urine WBC 14 H (0-5) /hpf Ur Squamous Epith Cells <1 (0-4) /hpf Urine Bacteria Rare H (None) /hpf Hyaline Casts 1 (0-2) /lpf Urine Mucus Rare H (None) /hpf 09/09/22 09/09/22 Range/Units 19:20 19:20 WBC (3.8-10.6) k/uL RBC (3.80-5.40) m/uL Hgb (11.4-16.0) gm/dL Hct (34.0-46.0) % MCV (80.0-100.0) fL MCH (25.0-35.0) pg MCHC (31.0-37.0) g/dL RDW (11.5-15.5) % Plt Count (150-450) k/uL MPV Neutrophils % % Lymphocytes % % Monocytes % % Eosinophils % % Basophils % % Neutrophils # (1.3-7.7) k/uL Lymphocytes # (1.0-4.8) k/uL Monocytes # (0-1.0) k/uL Eosinophils # (0-0.7) k/uL Basophils # (0-0.2) k/uL Sodium (137-145) mmol/L Potassium (3.5-5.1) mmol/L Chloride (98-107) mmol/L Carbon Dioxide (22-30) mmol/L Anion Gap mmol/L BUN (7-17) mg/dL Creatinine (0.52-1.04) mg/dL Est GFR (CKD-EPI)AfAm (>60 ml/min/1.73 sqM) Est GFR (CKD-EPI)NonAf (>60 ml/min/1.73 sqM) Glucose (74-99) mg/dL Plasma Lactic Acid Yusuf 2.0 (0.7-2.0) mmol/L Calcium (8.4-10.2) mg/dL Total Bilirubin (0.2-1.3) mg/dL AST (14-36) U/L ALT (4-34) U/L Alkaline Phosphatase (38-126) U/L Creatine Kinase (30-135) U/L Troponin I <0.012 (0.000-0.034) ng/mL Total Protein (6.3-8.2) g/dL Albumin (3.5-5.0) g/dL Amylase (30-110) U/L Lipase (23-300) U/L Urine Color Urine Appearance (Clear) Urine pH (5.0-8.0) Ur Specific [place] (1.001-1.035) Urine Protein (Negative) Urine Glucose (UA) (Negative) Urine Ketones (Negative) Urine Blood (Negative) Urine Nitrite (Negative) Urine Bilirubin (Negative) Urine Urobilinogen (<2.0) mg/dL Ur Leukocyte Esterase (Negative) Urine RBC (0-5) /hpf Urine WBC (0-5) /hpf Ur Squamous Epith Cells (0-4) /hpf Urine Bacteria (None) /hpf Hyaline Casts (0-2) /lpf Urine Mucus (None) /hpf - Radiology Data Radiology results: image reviewed (I did interpret the imaging no acute processes at this time.) Disposition Clinical Impression: Urinary tract infection, Dementia, Dehydration, Decubitus skin ulcer Disposition: ADMITTED IP TO THIS [facility] Condition: Fair Referrals: Geronimo Rios DO [Primary Care Provider] - 1-2 days Decision Date: 09/09/22 Decision Time: 21:11
[2022-09-09 19:33] LABS: Basophils % (A) 0 %; Eosinophils # (A) 0.2 k/uL (0-0.7); Eosinophils % (A) 4 %; HGB 12.2 gm/dL (11.4-16.0); Lymphocytes # (A) 1.2 k/uL (1.0-4.8); Lymphocytes % (A) 18 %; MCH 31.2 pg (25.0-35.0); MCHC 34.8 g/dL (31.0-37.0); MCV 89.8 fL (80.0-100.0); Mean Platelet Volume 8.2; Monocytes # (A) 0.5 k/uL (0-1.0); Monocytes % (A) 8 %; Neutrophils # (A) 4.7 k/uL (1.3-7.7); Neutrophils % (A) 69 %; Platelet Count 253 k/uL (150-450); RDW 12.5 % (11.5-15.5); WBC 6.8 k/uL (3.8-10.6)
[2022-09-09 19:35] LABS: Appearance,Urine Cloudy (Clear); Bacteria,Urine Rare /hpf; Bilirubin,Urine Negative (Negative); Blood,Urine Negative (Negative); Color,Urine Light Yellow; Glucose,Urine (UA) Negative (Negative); Hyaline Casts,Urine 1 /lpf (0-2); Ketones,Urine Negative (Negative); Leukocyte Esterase,Urine Large (Negative); Mucus,Urine Rare /hpf; Nitrite,Urine Negative (Negative); Protein,Urine Negative (Negative); RBC,Urine 1 /hpf (0-5); Specific Gravity,Urine 1.007 (1.001-1.035); Squamous Epithelial Cell,Urine <1 /hpf (0-4); Urobilinogen,Urine <2.0 mg/dL (<2.0); WBC,Urine 14 /hpf (0-5)
[2022-09-09 19:54] LABS: ALT 14 U/L (4-34); AST 19 U/L (14-36); African American GFR (CKD) >90 (>60 ml/min/1.73 sqM); Albumin 3.1 g/dL (3.5-5.0); Alkaline Phosphatase 68 U/L (38-126); Amylase 38 U/L (30-110); Anion Gap 4 mmol/L; Blood Urea Nitrogen 7 mg/dL (7-17); Calcium 7.8 mg/dL (8.4-10.2); Carbon Dioxide 24 mmol/L (22-30); Chloride 108 mmol/L (98-107); Creatine Kinase 31 U/L (30-135); Glucose 107 mg/dL (74-99); Lipase 128 U/L (23-300); Non-African American GFR(CKD) >90 (>60 ml/min/1.73 sqM); Potassium 3.5 mmol/L (3.5-5.1); Sodium 136 mmol/L (137-145); Total Bilirubin 0.5 mg/dL (0.2-1.3); Total Protein 5.9 g/dL (6.3-8.2)
--- NOTE | 2022-09-09 20:05 | XR ---
EXAMINATION TYPE: XR chest 2V DATE OF EXAM: 09/09/2022 COMPARISON: 12/08/2021 HISTORY: Abdominal pain TECHNIQUE: 2 views FINDINGS: There is no heart failure nor confluent pneumonic infiltrate. Thoracic aorta is atheromatou s. Costophrenic angles are clear. Bony thorax is intact. There is some osteopenia. IMPRESSION: No active cardiopulmonary disease. There is clearing of the small pleural effusions flaquita red to old exam.
--- NOTE | 2022-09-09 20:06 | XR ---
EXAMINATION TYPE: XR KUB DATE OF EXAM: 09/09/2022 COMPARISON: NONE HISTORY: Abdominal pain TECHNIQUE: 2 views supine FINDINGS: There is no sign of intestinal obstruction or pneumoperitoneum. Fecal pattern is normal. No evidence of a mass. No pathologic calcifications over the kidneys. Lung bases are clear. IMPRESSION: Nonacute abdomen.
[2022-09-09] MEDS ORDERED: cefTRIAXone IN SWFI 1,000 MG/10 ML SYRINGE IVP STA (21:03)
[2022-09-09] MEDS ORDERED: ONDANSETRON 4 MG/2 ML VIAL IVP PRN (21:12)
[2022-09-09] MEDS ORDERED: NALOXONE 0.4 MG/ML 1 ML VIAL IV PRN (21:12)
[2022-09-09] MEDS: SODIUM CHLORIDE 0.9% 1,000 ML IV SCH (22:30)
[2022-09-10] MEDS: SODIUM CHLORIDE 0.9% 1,000 ML IV SCH ×2 (08:02→14:59)
[2022-09-10] MEDS: FOLIC ACID 1 MG TAB PO SCH (08:39)
[2022-09-10] MEDS: CHOLECALCIFEROL 25 MCG (1000 IU) TABLET PO SCH (08:39)
[2022-09-10] MEDS: CYANOCOBALAMIN 500 MCG TAB PO SCH (08:39)
--- NOTE | 2022-09-10 10:37 | P.HPIM ---
History of Present Illness H&P Date: 09/10/22 76 year old female with PMH of dementia attributed to chronic alcohol abuse, decubitus ulcers on both buttock and coccyx presents to the ED for altered mentation. Patient is unable to communicate effectively and majority of history is obtained from documentation. She was recently admitted on December/2021 for altered mentation and hyponatremia, thought to be related to dehydration and beer potomania, treated with IV fluids and discharged to SNF. Patient is unable to describe her symptoms effectively, mumbling, but appears comfortable. Apparently, she had some abdominal pain which prompted family to bring her to the ED. In the ED, her vital signs are stable. CBC was unremarkable. CMP showed sodium 136, chloride 108, creatinine of 0.43, glucose 107, albumin at 3.1 and calcium is 7.8. Lactic acid negative. Troponin negative. Urinalysis showed large leukocyte esterase. Chest x-ray was negative. KUB was negative. Patient was admitted for altered mentation and treatment a UTI. Unable to obtain review of systems. General: non toxic, no distress, appears at stated age Derm: warm, dry Head: atraumatic, normocephalic, symmetric Eyes: EOMI, no lid lag, anicteric sclera Mouth: no lip lesion, mucus membranes moist Cardiovascular: S1S2 reg, no murmur, positive posterior tibial pulse bilateral, Lungs: CTA bilateral, no rhonchi, no rales , no accessory muscle use Abdominal: soft, nontender to palpation, no guarding, no appreciable organomegaly Ext: no gross muscle atrophy, no edema, no contractures Neuro: Unable to assess Psych: Unable to assess #Acute metabolic encephalopathy #Urinary tract infection Obtain TSH, B12, Folate. Fall precautions. Start Rocephin. Follow urine culture. PT and OT consult. Neurology consulted in the ED. #Decubitus ulcers Local wound care. Wound care consult. #Mild hyponatremia Continue NS at 50 cc/hr. Repeat BMP tomorrow morning. #Hypoalbuminemia Likely due to poor appetite. Add Ensure. #History of dementia #History of chronic alcohol abuse Will need to discus with family the patient's baseline. DVT prophylaxis: Heparin Discussed with: Patient Anticipated discharge: 2-[address]: Home versus a [facility] A total of 30 minutes was spent on the care of this complex patient more than 50% of the time was spent in counseling and care coordination. Past Medical History Past Medical History: Unable to Obtain History of Any Multi-Drug Resistant Organisms: None Reported Past Surgical History: Unable to Obtain Past Psychological History: No Psychological Hx Reported Smoking Status: Never smoker Past Alcohol Use History: Occasional Past Drug Use History: None Reported Medications and Allergies Home Medications Medication Instructions Recorded Confirmed Type Cholecalciferol [Vitamin D3 (25 50 mcg PO DAILY 09/09/22 09/09/22 History Mcg = 1000 Iu)] Cyanocobalamin (Vitamin B-12) 1,000 mcg PO DAILY 09/09/22 09/09/22 History [Vitamin B-12] Folic Acid 0.8 mg PO DAILY 09/09/22 09/09/22 History Allergies Allergy/AdvReac Type Severity Reaction Status Date / Time No Known Allergies Allergy Verified 09/09/22 20:00 Physical Exam Vitals: Vital Signs Temp Pulse Resp BP Pulse Ox 09/10/22 07:37 85 16 143/85 97 09/10/22 06:00 98.1 F 82 16 146/79 96 09/10/22 02:37 82 18 139/77 97 09/09/22 23:35 98 16 114/88 96 09/09/22 22:35 98 18 159/73 96 09/09/22 21:35 86 18 154/94 97 09/09/22 20:35 98 16 130/85 96 09/09/22 19:32 98.2 F 67 18 135/87 98 Intake and Output 09/09/22 09/10/22 09/10/22 22:59 06:59 14:59 Other: Weight 48.081 kg Results CBC & Chem 7: 09/09/22 19:20 09/09/22 19:20 Labs: Abnormal Lab Results - Last 24 Hours (Table) 09/09/22 09/09/22 Range/Units 19:20 19:20 Sodium 136 L (137-145) mmol/L Chloride 108 H (98-107) mmol/L Creatinine 0.43 L (0.52-1.04) mg/dL Glucose 107 H (74-99) mg/dL Calcium 7.8 L (8.4-10.2) mg/dL Total Protein 5.9 L (6.3-8.2) g/dL Albumin 3.1 L (3.5-5.0) g/dL Urine Appearance Cloudy H (Clear) Ur Leukocyte Esterase Large H (Negative) Urine WBC 14 H (0-5) /hpf Urine Bacteria Rare H (None) /hpf Urine Mucus Rare H (None) /hpf Microbiology - Last 24 Hours (Table) 09/09/22 19:20 Urine Culture - Preliminary Urine,Voided
--- NOTE | 2022-09-10 13:31 | P.CNNES ---
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 History is obtained from medical records. Upon seeing her she is not verbalizing or following commands. I am not sure of patient baseline mentation and if any worse compared to prior. Unsure of exact detail of dementia. It seems that the patient was admitted in December 2021 for altered mental status change and had dehydration, hyponatremia and was felt to have beer proteinemia and was treated with IV fluids then discharged to the subacute nursing facility. Some of the work-up during this hospital consisted of: cbc with diff is unremarkable. Glucose 107 Sodium was 136. Calcium 7.8. UTI: seem probable UTI Review of Systems Review of system is limited but the pertinent positive and negative as per HPI. Past Medical History Past Medical History: Unable to Obtain History of Any Multi-Drug Resistant Organisms: None Reported Past Surgical History: Unable to Obtain Past Psychological History: No Psychological Hx Reported Smoking Status: Never smoker Past Alcohol Use History: Occasional Past Drug Use History: None Reported Medications and Allergies Home Medications Medication Instructions Recorded Confirmed Type Cholecalciferol [Vitamin D3 (25 50 mcg PO DAILY 09/09/22 09/09/22 History Mcg = 1000 Iu)] Cyanocobalamin (Vitamin B-12) 1,000 mcg PO DAILY 09/09/22 09/09/22 History [Vitamin B-12] Folic Acid 0.8 mg PO DAILY 09/09/22 09/09/22 History Allergies Allergy/AdvReac Type Severity Reaction Status Date / Time No Known Allergies Allergy Verified 09/09/22 20:00 Physical Examination - Vital Signs Vital Signs: Vital Signs Temp Pulse Pulse Resp BP BP Pulse Ox 09/10/22 12:58 98.1 F 83 16 166/81 97 09/10/22 07:37 85 16 143/85 97 09/10/22 06:00 98.1 F 82 16 146/79 96 09/10/22 02:37 82 18 139/77 97 09/09/22 23:35 98 16 114/88 96 09/09/22 22:35 98 18 159/73 96 09/09/22 21:35 86 18 154/94 97 09/09/22 20:35 98 16 130/85 96 09/09/22 19:32 98.2 F 67 18 135/87 98 Intake and Output 09/09/22 09/10/22 09/10/22 22:59 06:59 14:59 Other: Weight 48.081 kg GENERAL: The patient is lying in bed and does not appear in acute distress. CHEST: The heart rate is regular rate rhythm. No murmurs to auscultation. LUNG: Clear to auscultation bilaterally no wheezing noted throughout. Not labored breathing. ABDOMEN/GI: Bowel sounds present in all 4 quadrants. No tenderness to palpation throughout. NEUROLOGICAL: Extremely limited because of her condition. Higher mental function: The patient is awake. But no verbalizing or following commands. Cranial nerves: The pupils are round, equal and reactive to light. She is tracking to right and looks to left. Otherwise could not assess EOM or visual mchugh. No facial weakness. Otherwise rest is limited because of her condition. Motor: The strength is unable to assess uppers or lowers. Upon attempting to raise uppers extremities above gravity she was resisting. Has some tremor of uppers at rest or movement. Cerebellum: Unable to assess. . Sensation: Unable to assess. Reflexes (right/left): Unable to assess. Plantars are mute bilaterally. Results - Laboratory Findings CBC and BMP: 09/09/22 19:20 09/09/22 19:20 Abnormal Lab Findings: Abnormal Labs 09/09/22 09/09/22 19:20 19:20 Sodium 136 L Chloride 108 H Creatinine 0.43 L Glucose 107 H Calcium 7.8 L Total Protein 5.9 L Albumin 3.1 L Urine Appearance Cloudy H Ur Leukocyte Esterase Large H Urine WBC 14 H Urine Bacteria Rare H Urine Mucus Rare H Assessment and Plan Assessment: Altered mental status and seems due to underlying acute UTI causing delerium Reported History of dementia due to chronic alcohol use. Unsure severity of dementia prior to this and for how long or what is her baseline. Suspected acute urinary tract infection Chronic alcohol use Decubitus ulcer Plan: I ordered CT of the head to rule out any central cause of her worsening mentation as well as EEG to rule out any underlying seizures or discharges TSH, folate, vitamin B12 are ordered by primary team. Ordered ammonia level and Urine drug screen. I started the patient on thiamine 100mg daily. She is on Vitamin B12 and folic acid started by ED team. Unsure severity of dementia prior to this and for how long or what is her baseline. Urine culture is pending. Will defer the rest of medical management to primary team. I attempted to contact patient's daughter via phone but no response. Will try again. Plan is discussed with the nurse. Thank you for the consultation. Time with Patient: Greater than 30
--- NOTE | 2022-09-10 14:21 | CT ---
EXAMINATION TYPE: CT brain wo con CT DLP: 1253.3 mGycm, Automated exposure control for dose reduction was used. DATE OF EXAM: 09/10/2022 2:11 PM COMPARISON: 12/08/2021. CLINICAL INDICATION:Female, 76 years old with history of altered mental status, TECHNIQUE: Brain: Axial CT images of the brain were obtained with coronal and sagittal reformats created and rev iewed. Contrast used: None. Oral contrast used: None. FINDINGS: Brain: Extra-axial spaces: No abnormal extra-axial fluid collections. Ventricular system: Dilatation in proportion to cerebral atrophy. Cerebral parenchyma: Cerebral atrophy. No acute intraparenchymal hemorrhage or mass effect. The montanez -white junction is well differentiated. Scattered hypoattenuating areas are seen within the white mat ter. Cerebellum: Cerebellar atrophy Mass effect: No evidence of midline shift. Intracranial vasculature: Atherosclerotic calcifications of the intracranial vessels. Soft tissues: Normal. Calvarium/osseous structures: No depressed skull fracture. Paranasal sinuses and mastoid air cells: Mild scattered paranasal sinus disease. Visualized orbits: Orbital contents are intact. IMPRESSION: 1. No acute intracranial process. 2. Nonspecific white matter changes, likely secondary to chronic small vessel ischemic disease.
[2022-09-10] MEDS: THIAMINE 100 MG TAB PO SCH (14:58)
[2022-09-10 16:19] LABS: Amphetamine Screen,Urine Not Detected (NotDetected); Barbiturate Screen,Urine Not Detected (NotDetected); Benzodiazepines Screen,Urine Not Detected (NotDetected); Cocaine Screen,Urine Not Detected (NotDetected); Methadone Screen, Urine Not Detected (NotDetected); Opiate Screen,Urine Not Detected (NotDetected); Oxycodone Screen, Urine Not Detected (NotDetected); Phencyclidine Screen,Urine Not Detected (NotDetected); Tricyclic Antidepressant,Urine Not Detected (NotDetected); Urn Cannabinoid Scrn Not Detected (NotDetected)
[2022-09-10] MEDS: LACOSAMIDE IV 50 MG in SODIUM CHLORIDE 0.9% 50 ML IVPB SCH ×2 (16:35→21:12)
[2022-09-10] MEDS: HEPARIN SODIUM,PORCINE/PF 5,000 UNIT/0.5 ML SYRINGE SQ SCH (21:12)
--- NOTE | 2022-09-10 22:09 | EEG ---
ELECTROENCEPHALOGRAM REPORT CLINICAL HISTORY: This is a 76-year-old woman with altered mental status. The video EEG is obtained to evaluate for seizure epileptiform activity. RELEVANT MEDICATION: The patient is not on any antiepileptic drugs. EEG TYPE: A routine 21-channel EEG is performed with video using the 10/20 electrode placement system. DESCRIPTION: Wakefulness is only obtained. During awake state, the background consists of moderate voltage of 4 to 5 hertz theta activity intermixed with delta activity. There was no physiological sleep architecture seen. There is no focal slowing. There is significant diffuse myogenic artifact throughout the study. Interictal and ictal is none. ACTIVATION PROCEDURE: Photic stimulation was aborted early and it was aborted at 22 hertz because of the patient's cooperation, but no photic driving or any abnormality seen with the limited study. Hyperventilation is not performed. CLINICAL INTERPRETATION: This is an abnormal routine EEG. The background slowing is suggestive of severe encephalopathy. The study is obscured because of the myogenic artifact. Otherwise, there is no focal slowing, epileptiform discharges, or seizure on the EEG. Clinical correlation is recommended. MMODL / IJN: [id number] /
[2022-09-11] MEDS: THIAMINE 100 MG TAB PO SCH (10:44)
[2022-09-11] MEDS: CYANOCOBALAMIN 500 MCG TAB PO SCH (10:44)
[2022-09-11] MEDS: CHOLECALCIFEROL 25 MCG (1000 IU) TABLET PO SCH (10:44)
[2022-09-11] MEDS: HEPARIN SODIUM,PORCINE/PF 5,000 UNIT/0.5 ML SYRINGE SQ SCH ×2 (10:45→22:41)
[2022-09-11] MEDS: FOLIC ACID 1 MG TAB PO SCH (10:45)
[2022-09-11] MEDS: SODIUM CHLORIDE 0.9% 1,000 ML IV SCH (10:46)
[2022-09-11] MEDS: LACOSAMIDE IV 50 MG in SODIUM CHLORIDE 0.9% 50 ML IVPB SCH ×2 (11:29→22:41)
--- NOTE | 2022-09-11 11:38 | P.PN ---
Subjective Progress Note Date: 09/11/22 76 year old female with PMH of dementia attributed to chronic alcohol abuse, decubitus ulcers on both buttock and coccyx presents to the ED for altered mentation. Patient is unable to communicate effectively and majority of history is obtained from documentation. She was recently admitted on December/2021 for altered mentation and hyponatremia, thought to be related to dehydration and beer potomania, treated with IV fluids and discharged to SNF. Patient is unable to describe her symptoms effectively, mumbling, but appears comfortable. Apparently, she had some abdominal pain which prompted family to bring her to the ED. In the ED, her vital signs are stable. CBC was unremarkable. CMP showed sodium 136, chloride 108, creatinine of 0.43, glucose 107, albumin at 3.1 and calcium is 7.8. Lactic acid negative. Troponin negative. Urinalysis showed large leukocyte esterase. Chest x-ray was negative. KUB was negative. Patient was admitted for altered mentation and treatment a UTI. Patient was seen and examined. No acute events overnight. Patient was choking on her breakfast today, unable to swallow. Able to drink fluids without difficulties. Her mentation remains the same, she is not communicating this morning. General: non toxic, no distress, appears at stated age Derm: warm, dry Head: atraumatic, normocephalic, symmetric Eyes: EOMI, no lid lag, anicteric sclera Mouth: no lip lesion, mucus membranes moist Cardiovascular: S1S2 reg, no murmur Lungs: CTA bilateral, no rhonchi, no rales , no accessory muscle use Abdominal: soft, nontender to palpation, no guarding, no appreciable organomegaly Ext: no gross muscle atrophy, no edema, no contractures Neuro: Unable to assess Psych: Unable to assess #Acute metabolic encephalopathy #Urinary tract infection TSH, B12, Folate within normal limits. Ammonia negative. CT head shows chronic small vessel ischemia. EEG shows severe encephalopathy. Fall precautions. Continue Rocephin (D 2). Follow urine culture. PT and OT consult. Neurology consulted, patient started on Vimpat IV. Speech pathology consulted for swallow evaluation. #Decubitus ulcers Local wound care. Wound care consult. #Mild hyponatremia Continue NS at 50 cc/hr. Repeat BMP tomorrow morning. #Hypoalbuminemia Likely due to poor appetite. Add Ensure. #History of dementia #History of chronic alcohol abuse Will need to discus with family the patient's baseline. Objective - Vital Signs Vital signs: Vital Signs Temp 98.3 F 09/11/22 03:32 Pulse 95 09/11/22 03:32 Resp 18 09/11/22 03:32 BP 138/83 09/11/22 03:32 Pulse Ox 96 09/11/22 03:32 FiO2 Intake & Output 09/10/22 09/11/22 09/11/22 18:59 06:59 18:59 Intake Total 750 Output Total 300 Balance 450 Weight 48.081 kg Intake: Intake, IV Titration 650 Amount Lacosamide IV 50 mg In 50 Sodium Chloride 0.9% 50 ml @ 100 mls/hr IVPB BID [facility] Rx#:[id number] Sodium Chloride 0.9% 1, 600 000 ml @ 50 mls/hr IV . Q20H [facility] Rx#:[id number] Oral 100 Output: Urine 300 Other: Voiding Method Diaper Diaper Diaper Incontinent Incontinent Incontinent # Voids 2 1 1 # Bowel Movements 3 1 1 - Labs CBC & Chem 7: 09/09/22 19:20 09/09/22 19:20 Labs: Microbiology - Last 24 Hours (Table) 09/09/22 19:20 Blood Culture - Preliminary Blood No Growth after 24 hours 09/09/22 19:35 Blood Culture - Preliminary Blood No Growth after 24 hours 09/09/22 19:20 Urine Culture - Final Urine,Voided
--- NOTE | 2022-09-11 11:51 | P.CONS ---
History of Present Illness - Reason for Consult Consult date: 09/11/22 wound care - History of Present Illness This is a 76-year-old patient with history of chronic alcohol abuse with bilateral excoriation and a stage II pressure ulcer to the right buttocks. The stage II pressure ulcer measures approximately 1 x 1 x 0.1 cm. Excoriation is noted to bilateral buttocks. Review of systems: Unable to obtain Physical exam: General Appearance: Alert, cooperative, no distress, appears stated age. Skin: See HPI all other Skin color, texture, tugor normal, no rashes or lesions. Neurologic: Alert oriented x3 Assessment: 1. Stage II pressure ulcer right buttocks 2. Stage I pressure ulcer left buttocks 3. Excoriation Plan: 1. Apply triad to the site daily and as needed. Turn patient every 2 hours. Thank you for the consultation any questions please contact the wound care center DNP note has been reviewed and discussed with Dr. Hair and the impression and plan of care has been directed as dictated. Past Medical History Past Medical History: Unable to Obtain Additional Past Medical History / Comment(s): unable to ambulate since early April 2022, unable to form a sentence for the past 2-3 weeks, increased c onfusion, x-etoh (quit drinking in july 2021, used to drink 12 beers daily) History of Any Multi-Drug Resistant Organisms: None Reported Past Surgical History: Unable to Obtain Past Psychological History: No Psychological Hx Reported Smoking Status: Never smoker Past Alcohol Use History: Occasional Past Drug Use History: None Reported - Past Family History Father Additional Family Medical History / Comment(s): alcoholism Mother Additional Family Medical History / Comment(s): alcholism Medications and Allergies Home Medications Medication Instructions Recorded Confirmed Type Cholecalciferol [Vitamin D3 (25 50 mcg PO DAILY 09/09/22 09/09/22 History Mcg = 1000 Iu)] Cyanocobalamin (Vitamin B-12) 1,000 mcg PO DAILY 09/09/22 09/09/22 History [Vitamin B-12] Folic Acid 0.8 mg PO DAILY 09/09/22 09/09/22 History Allergies Allergy/AdvReac Type Severity Reaction Status Date / Time No Known Allergies Allergy Verified 09/09/22 20:00 Physical Exam Vitals: Vital Signs Temp Pulse Resp BP Pulse Ox 09/11/22 11:30 98.4 F 76 17 130/67 94 L 09/11/22 03:32 98.3 F 95 18 138/83 96 09/10/22 20:00 18 09/10/22 19:45 97.4 F L 101 H 16 136/71 96 09/10/22 12:58 98.1 F 83 16 166/81 97 Intake and Output 09/10/22 09/11/22 09/11/22 22:59 06:59 14:59 Intake Total 750 Output Total 300 Balance 450 Intake: Intake, IV Titration 650 Amount Lacosamide IV 50 mg In 50 Sodium Chloride 0.9% 50 ml @ 100 mls/hr IVPB BID [facility] Rx#:[id number] Sodium Chloride 0.9% 1, 600 000 ml @ 50 mls/hr IV . Q20H [facility] Rx#:[id number] Oral 100 Output: Urine 300 Other: Voiding Method Diaper Diaper Incontinent Incontinent # Voids 2 1 1 # Bowel Movements 3 1 1 Results CBC & Chem 7: 09/09/22 19:20 09/09/22 19:20 Labs: Microbiology - Last 24 Hours (Table) 09/09/22 19:20 Blood Culture - Preliminary Blood No Growth after 24 hours 09/09/22 19:35 Blood Culture - Preliminary Blood No Growth after 24 hours 09/09/22 19:20 Urine Culture - Final Urine,Voided Assessment and Plan (1) Stage II pressure ulcer of right buttock Current Visit: Yes Status: Acute Code(s): L89.312 - PRESSURE ULCER OF RIGHT BUTTOCK, STAGE 2 SNOMED Code(s): 15411050654848 (2) Pressure ulcer of left buttock, stage 1 Current Visit: Yes Status: Acute Code(s): L89.321 - PRESSURE ULCER OF LEFT BUTTOCK, STAGE 1 SNOMED Code(s): 40142640515552 (3) Excoriation of buttock Current Visit: Yes Status: Acute Code(s): S30.810A - ABRASION OF LOWER BACK AND PELVIS, INITIAL ENCOUNTER SNOMED Code(s): 191916604
[2022-09-11] MEDS: HYDROPHILIC CREAM 180 GM TUBE TOPICAL SCH (12:22)
--- NOTE | 2022-09-11 13:48 | P.PN ---
Subjective Progress Note Date: 09/11/22 The patient is seen at bedside and per nursing staff about the same. Objective - Vital Signs Vital signs: Vital Signs Temp 98.4 F 09/11/22 11:30 Pulse 76 09/11/22 11:30 Resp 17 09/11/22 11:30 BP 130/67 09/11/22 11:30 Pulse Ox 94 L 09/11/22 11:30 FiO2 Intake & Output 09/10/22 09/11/22 09/11/22 18:59 06:59 18:59 Intake Total 750 Output Total 300 Balance 450 Weight 48.081 kg Intake: Intake, IV Titration 650 Amount Lacosamide IV 50 mg In 50 Sodium Chloride 0.9% 50 ml @ 100 mls/hr IVPB BID [facility] Rx#:[id number] Sodium Chloride 0.9% 1, 600 000 ml @ 50 mls/hr IV . Q20H [facility] Rx#:[id number] Oral 100 Output: Urine 300 Other: Voiding Method Diaper Diaper Diaper Incontinent Incontinent Incontinent # Voids 2 1 1 # Bowel Movements 3 1 1 - Exam GENERAL: The patient is lying in bed and does not appear in acute distress. NEUROLOGICAL: Extremely limited because of her condition. Higher mental function: The patient is awake. But no verbalizing or following commands. Cranial nerves: The pupils are round, equal and reactive to light. She is tracking to right and looks to left. Otherwise could not assess EOM or visual mchugh. No facial weakness. Otherwise rest is limited because of her condition. Motor: The strength is unable to assess uppers or lowers. Upon attempting to raise uppers extremities above gravity she was resisting. Has some tremor of uppers at rest or movement. Cerebellum: Unable to assess. . Sensation: Unable to assess. Reflexes (right/left): Unable to assess. Plantars are mute bilaterally. SOME OF THE WORK-UP DURING THIS HOSPITAL VISIT CONSISTED OF: cbc with diff is unremarkable. Glucose 107 Sodium was 136. Calcium 7.8. Vitamin B12: 655 serum folate >20 CK 31 Ammonia <9 UTI: seem probable UTI Tox screen is not detected. Routine EEG: Is abnormal. The background slowing suggestive of severe encephalopathy. The study is obscured because of the myogenic artifact. Other hugo, there is no focal slowing, epileptiform discharges or seizure on the EEG. CT of the head: No acute intracranial process. Nonspecific white matter changes, likely secondary to chronic small vessel ischemic disease. I personally reviewed CT head and I did not appreciate any acute or subacute i schemic stroke or mass effect. - Labs CBC & Chem 7: 09/09/22 19:20 09/09/22 19:20 Labs: Microbiology - Last 24 Hours (Table) 09/09/22 19:20 Blood Culture - Preliminary Blood No Growth after 24 hours 09/09/22 19:35 Blood Culture - Preliminary Blood No Growth after 24 hours 09/09/22 19:20 Urine Culture - Final Urine,Voided Assessment and Plan Assessment: Altered mental status and seems due to underlying acute UTI causing delirium Reported History of advanced dementia due to chronic alcohol use. Unsure severity of dementia prior to this and for how long or what is her baseline. Suspected acute urinary tract infection Chronic alcohol use Decubitus ulcer Plan: I started the patient on Vimpat 50mg 1 tab bid IV as seizure prophylaxis since unsure if some of her tremor are truly seizures or not. Her routine EEG is negative for seizure. If no improvement in condition will discontinue Vimpat. Continue thiamine 100mg daily. Unsure severity of dementia prior to this and for how long or what is her baseline. Urine culture is pending. Will defer the rest of medical management to primary team. I attempted to contact the patient's daughters again and no response. Will continue to follow. Time with Patient: Less than 30
[2022-09-12 08:44] LABS: African American GFR (CKD) >90 (>60 ml/min/1.73 sqM); Calcium 8.2 mg/dL (8.4-10.2); Carbon Dioxide 25 mmol/L (22-30); Non-African American GFR(CKD) >90 (>60 ml/min/1.73 sqM)
[2022-09-12 08:54] LABS: Anion Gap 5 mmol/L; Blood Urea Nitrogen 5 mg/dL (7-17); Chloride 106 mmol/L (98-107); Glucose 102 mg/dL (74-99); Sodium 136 mmol/L (137-145)
[2022-09-12] MEDS: HEPARIN SODIUM,PORCINE/PF 5,000 UNIT/0.5 ML SYRINGE SQ SCH ×2 (08:57→21:04)
[2022-09-12] MEDS: HYDROPHILIC CREAM 180 GM TUBE TOPICAL SCH (09:01)
[2022-09-12] MEDS: CYANOCOBALAMIN 500 MCG TAB PO SCH (09:01)
[2022-09-12] MEDS: CHOLECALCIFEROL 25 MCG (1000 IU) TABLET PO SCH (09:01)
[2022-09-12] MEDS: FOLIC ACID 1 MG TAB PO SCH (09:02)
[2022-09-12] MEDS: LACOSAMIDE IV 50 MG in SODIUM CHLORIDE 0.9% 50 ML IVPB SCH (09:45)
[2022-09-12] MEDS: CARBIDOPA-LEVODOPA 25-100 MG 1 EACH TAB PO SCH ×3 (10:29→21:04)
[2022-09-12] MEDS: THIAMINE 500 MG in SODIUM CHLORIDE 0.9% 100 ML IVPB SCH ×3 (10:29→21:03)
--- NOTE | 2022-09-12 12:04 | P.PN ---
Progress Note - Text Progress Note Date: 09/12/22 Spoke with patient's daughter, Shannan, via telephone. She stated both her and her sister are working today and would not be able to come up to the hospital until later this evening. We scheduled a meeting for tomorrow 09/13 at 2pm to discuss goals of care. Andria Urbina [facility]iative [facility]/Urology [facility] [id number] Email: [email or web address]
--- NOTE | 2022-09-12 12:31 | P.PN ---
Subjective Progress Note Date: 09/12/22 The patient is seen at bedside and is about the same according to the nursing staff. Per primary team, her family were at bedside yesterday and it seem the patient has history of severe alcohol use and stopped drinking in Summer 2021 (Possibly April or May) and was responding till about a month ago. It seems the patient condition has been declining. Objective - Vital Signs Vital signs: Vital Signs Temp 97.9 F 09/12/22 11:40 Pulse 100 09/12/22 11:40 Resp 20 09/12/22 11:40 BP 138/77 09/12/22 11:40 Pulse Ox 96 09/12/22 11:40 FiO2 Intake & Output 09/11/22 09/12/22 09/12/22 18:59 06:59 18:59 Intake Total 300 Balance 300 Intake: Oral 300 Other: Voiding Method Diaper Diaper Diaper Incontinent Incontinent Incontinent # Voids 1 4 # Bowel Movements 1 1 - Exam GENERAL: The patient is lying in bed and does not appear in acute distress. NEUROLOGICAL: Extremely limited because of her condition. Higher mental function: The patient is awake. But no verbalizing or following commands. She babbles at time or says no. Cranial nerves: The pupils are round, equal and reactive to light. She is tracking to right and looks to left. Otherwise could not assess EOM or visual mchugh. No facial weakness. Otherwise rest is limited because of her condition. Motor: The strength is unable to assess uppers or lowers. She has increase tone in uppers and lowers. Has some tremor of uppers at rest or movement. Cerebellum: Unable to assess. . Sensation: Unable to assess. Reflexes (right/left): Unable to assess. Plantars are mute bilaterally. SOME OF THE WORK-UP DURING THIS HOSPITAL VISIT CONSISTED OF: cbc with diff is unremarkable. Glucose 107 Sodium was 136. Calcium 7.8. Vitamin B12: 655 serum folate >20 CK 31 Ammonia <9 UTI: seem probable UTI Tox screen is not detected. Routine EEG: Is abnormal. The background slowing suggestive of severe encephalopathy. The study is obscured because of the myogenic artifact. Otherwise, there is no focal slowing, epileptiform discharges or seizure on the EEG. CT of the head: No acute intracranial process. Nonspecific white matter moo nges, likely secondary to chronic small vessel ischemic disease. I personally reviewed CT head and I did not appreciate any acute or subacute ischemic stroke or mass effect. - Labs CBC & Chem 7: 09/09/22 19:20 09/12/22 08:18 Labs: Abnormal Lab Results - Last 24 Hours (Table) 09/12/22 Range/Units 08:18 Sodium 136 L (137-145) mmol/L BUN 5 L (7-17) mg/dL Creatinine 0.43 L (0.52-1.04) mg/dL Glucose 102 H (74-99) mg/dL Calcium 8.2 L (8.4-10.2) mg/dL Microbiology - Last 24 Hours (Table) 09/09/22 19:20 Blood Culture - Preliminary Blood No Growth after 48 hours 09/09/22 19:35 Blood Culture - Preliminary Blood No Growth after 48 hours Assessment and Plan Assessment: Increased tone in uppers and lowers with tremors and memory loss: Unsure exact cause but concern for Parkinsonism disease vs other neurodegenerative disease. Reported History of advanced dementia due to chronic alcohol use. I do not feel her alcohol is only culprit to her dementia since was notified that she stopped drinking in Summer and was doing well ?about a month ago. Chronic alcohol use but last alcohol drink was in summer 2021 Decubitus ulcer Plan: I started on Sinement 25-100 1 tab tid to assess if any improvement for concern for Parkinson's disease. Ordered MRI Brain and C-spine to rule out any central cause. I will discontinue Vimpat since no benefit and does not have seizure on EEG. Continue thiamine 100mg daily. PT and OT are consulted. Will defer the rest of medical management to primary team. The plan is discussed with the primary team and her nurse. Will continue to follow. Time with Patient: Less than 30
--- NOTE | 2022-09-12 14:22 | P.PN ---
Subjective Progress Note Date: 09/12/22 76 year old female with PMH of dementia attributed to chronic alcohol abuse, decubitus ulcers on both buttock and coccyx presents to the ED for altered mentation. Patient is unable to communicate effectively and majority of history is obtained from documentation. She was recently admitted on December/2021 for altered mentation and hyponatremia, thought to be related to dehydration and beer potomania, treated with IV fluids and discharged to SNF. Patient is unable to describe her symptoms effectively, mumbling, but appears comfortable. Apparently, she had some abdominal pain which prompted family to bring her to the ED. In the ED, her vital signs are stable. CBC was unremarkable. CMP showed sodium 136, chloride 108, creatinine of 0.43, glucose 107, albumin at 3.1 and calcium is 7.8. Lactic acid negative. Troponin negative. Urinalysis showed large leukocyte esterase. Chest x-ray was negative. KUB was negative. Patient was admitted for altered mentation and treatment a UTI. Patient was seen and examined. No acute events overnight. Her mentation remains the same, she is not communicating this morning. General: non toxic, no distress, appears at stated age Derm: warm, dry Head: atraumatic, normocephalic, symmetric Eyes: EOMI, no lid lag, anicteric sclera Mouth: no lip lesion, mucus membranes moist Cardiovascular: S1S2 reg, no murmur Lungs: CTA bilateral, no rhonchi, no rales , no accessory muscle use Abdominal: soft, nontender to palpation, no guarding, no appreciable organ omegaly Ext: no gross muscle atrophy, no edema, no contractures Neuro: Unable to assess Psych: Unable to assess #Acute metabolic encephalopathy #Urinary tract infection TSH, B12, Folate within normal limits. Ammonia negative. CT head shows chronic small vessel ischemia. EEG shows severe encephalopathy. Fall precautions. Completed 3 days of Rocephin, Urine culture negative. PT and OT consult. Vimpat discontinued low concerns for seizure. Neurology on board - MRI brain and C-spine ordered, discussed with Dr. Cameron. Speech pathology consulted for swallow evaluation - patient placed on dysphagia level 1 with 1:1 supervision. #Decubitus ulcers Local wound care. Wound care consult. #Mild hyponatremia Continue NS at 50 cc/hr. Repeat BMP tomorrow morning. #Hypoalbuminemia Likely due to poor appetite. Add Ensure. #History of dementia #History of chronic alcohol abuse Case was discussed with the daughter Barbara at bedside. Family reports that patient has a long-standing history of alcohol abuse. Her alcohol abuse had gotten worse after the loss of her . This summer, family cut her off from alcohol when her symptoms initially began. She had a fall, no fractures, sent to SNF and eventually discharged home. Patient was able to walk with the aid of a walker when she was discharged home from rehab. Over the next 2 weeks, patient progressively began to feel weak and was eventually unable to stand up. Her mentation has also been worsening over this time. Over the past month, patient has not been able to speak or communicate with her daughters. They do have a caregiver that assists with taking care of their mother. She has also been exhibiting tremors. I did discuss the CODE STATUS with family. Barbara believes that the patient should be no code. She would like to speak to her sister's prior to making a final determination. Objective - Vital Signs Vital signs: Vital Signs Temp 97.9 F 09/12/22 11:40 Pulse 100 09/12/22 11:40 Resp 20 09/12/22 11:40 BP 138/77 09/12/22 11:40 Pulse Ox 96 09/12/22 11:40 FiO2 Intake & Output 09/11/22 09/12/22 09/12/22 18:59 06:59 18:59 Intake Total 300 Balance 300 Intake: Oral 300 Other: Voiding Method Diaper Diaper Diaper Incontinent Incontinent Incontinent # Voids 1 4 # Bowel Movements 1 1 - Labs CBC & Chem 7: 09/09/22 19:20 09/12/22 08:18 Labs: Abnormal Lab Results - Last 24 Hours (Table) 09/12/22 Range/Units 08:18 Sodium 136 L (137-145) mmol/L BUN 5 L (7-17) mg/dL Creatinine 0.43 L (0.52-1.04) mg/dL Glucose 102 H (74-99) mg/dL Calcium 8.2 L (8.4-10.2) mg/dL Microbiology - Last 24 Hours (Table) 09/09/22 19:20 Blood Culture - Preliminary Blood No Growth after 48 hours 09/09/22 19:35 Blood Culture - Preliminary Blood No Growth after 48 hours
[2022-09-12] MEDS: SODIUM CHLORIDE 0.9% 1,000 ML IV SCH (21:04)
[2022-09-13] MEDS: CYANOCOBALAMIN 500 MCG TAB PO SCH (09:03)
[2022-09-13] MEDS: FOLIC ACID 1 MG TAB PO SCH (09:03)
[2022-09-13] MEDS: CARBIDOPA-LEVODOPA 25-100 MG 1 EACH TAB PO SCH ×3 (09:03→20:20)
[2022-09-13] MEDS: HEPARIN SODIUM,PORCINE/PF 5,000 UNIT/0.5 ML SYRINGE SQ SCH ×2 (09:03→20:19)
[2022-09-13] MEDS: SODIUM CHLORIDE 0.9% 1,000 ML IV SCH (09:03)
[2022-09-13] MEDS: CHOLECALCIFEROL 25 MCG (1000 IU) TABLET PO SCH (09:03)
[2022-09-13] MEDS: HYDROPHILIC CREAM 180 GM TUBE TOPICAL SCH (09:05)
[2022-09-13] MEDS: THIAMINE 500 MG in SODIUM CHLORIDE 0.9% 100 ML IVPB SCH ×3 (09:09→20:20)
--- NOTE | 2022-09-13 11:35 | P.PN ---
Subjective Progress Note Date: 09/13/22 Received phone call from patient's daughters. They state they're unable to attend today's scheduled meeting regarding goals of care for their mother. The meeting is rescheduled for September 14 at 2:30 PM. Andria Urbina [facility] Palliative Care/Urology [facility] [id number] Email: [email or web address] Objective - Vital Signs Vital signs: Vital Signs Temp 97.8 F 09/13/22 05:00 Pulse 94 09/13/22 05:00 Resp 20 09/13/22 05:00 BP 148/81 09/13/22 05:00 Pulse Ox 95 09/13/22 05:00 FiO2 Intake & Output 09/12/22 09/13/22 09/13/22 18:59 06:59 18:59 Intake Total 200 Balance 200 Intake: Oral 200 Other: Voiding Method Diaper Diaper Diaper Incontinent Incontinent Incontinent # Voids 2 1 1 - Labs CBC & Chem 7: 09/09/22 19:20 09/12/22 08:18 Labs: Microbiology - Last 24 Hours (Table) 09/09/22 19:20 Blood Culture - Preliminary Blood No Growth after 72 hours 09/09/22 19:35 Blood Culture - Preliminary Blood No Growth after 72 hours
--- NOTE | 2022-09-13 11:51 | P.PN ---
Subjective Progress Note Date: 09/13/22 76 year old female with PMH of dementia attributed to chronic alcohol abuse, decubitus ulcers on both buttock and coccyx presents to the ED for altered mentation. Patient is unable to communicate effectively and majority of history is obtained from documentation. She was recently admitted on December/2021 for altered mentation and hyponatremia, thought to be related to dehydration and beer potomania, treated with IV fluids and discharged to SNF. Patient is unable to describe her symptoms effectively, mumbling, but appears comfortable. Apparently, she had some abdominal pain which prompted family to bring her to the ED. In the ED, her vital signs are stable. CBC was unremarkable. CMP showed sodium 136, chloride 108, creatinine of 0.43, glucose 107, albumin at 3.1 and calcium is 7.8. Lactic acid negative. Troponin negative. Urinalysis showed large leukocyte esterase. Chest x-ray was negative. KUB was negative. Patient was admitted for altered mentation and treatment a UTI. Patient was seen and examined. No acute events overnight. Her mentation remains the same, she is not communicating this morning. General: non toxic, no distress, appears at stated age Derm: warm, dry Head: atraumatic, normocephalic, symmetric Eyes: EOMI, no lid lag, anicteric sclera Mouth: no lip lesion, mucus membranes moist Cardiovascular: S1S2 reg, no murmur Lungs: CTA bilateral, no rhonchi, no rales , no accessory muscle use Abdominal: soft, nontender to palpation, no guarding, no appreciable organ omegaly Ext: no gross muscle atrophy, no edema, no contractures Neuro: Unable to assess Psych: Unable to assess #Acute metabolic encephalopathy #Urinary tract infection TSH, B12, Folate within normal limits. Ammonia negative. CT head shows chronic small vessel ischemia. EEG shows severe encephalopathy. Fall precautions. Completed 3 days of Rocephin, Urine culture negative. PT and OT consult. Vimpat discontinued low concerns for seizure. Neurology on board - MRI brain and C-spine ordered Speech pathology consulted for swallow evaluation - patient placed on dysphagia level 1 with 1:1 supervision. #Decubitus ulcers Local wound care. Wound care consult. #Mild hyponatremia Continue NS at 50 cc/hr. Repeat BMP tomorrow morning. #Hypoalbuminemia Likely due to poor appetite. Add Ensure. #History of dementia #History of chronic alcohol abuse Case was discussed with the daughter Barbara at bedside. Family reports that patient has a long-standing history of alcohol abuse. Her alcohol abuse had gotten worse after the loss of her . This summer, family cut her off from alcohol when her symptoms initially began. She had a fall, no fractures, sent to SNF and eventually discharged home. Patient was able to walk with the aid of a walker when she was discharged home from rehab. Over the next 2 weeks, patient progressively began to feel weak and was eventually unable to stand up. Her mentation has also been worsening over this time. Over the past month, patient has not been able to speak or communicate with her daughters. They do have a caregiver that assists with taking care of their mother. She has also been exhibiting tremors. I did discuss the CODE STATUS with family. Barbara believes that the patient should be no code. She would like to speak to her sister's prior to making a final determination. Palliative care consulted. Objective - Vital Signs Vital signs: Vital Signs Temp 99.4 F 09/13/22 11:30 Pulse 100 09/13/22 11:30 Resp 18 09/13/22 11:30 BP 123/65 09/13/22 11:30 Pulse Ox 97 09/13/22 11:30 FiO2 Intake & Output 09/12/22 09/13/22 09/13/22 18:59 06:59 18:59 Intake Total 200 Balance 200 Intake: Oral 200 Other: Voiding Method Diaper Diaper Diaper Incontinent Incontinent Incontinent # Voids 2 1 1 - Labs CBC & Chem 7: 09/09/22 19:20 09/12/22 08:18 Labs: Microbiology - Last 24 Hours (Table) 09/09/22 19:20 Blood Culture - Preliminary Blood No Growth after 72 hours 09/09/22 19:35 Blood Culture - Preliminary Blood No Growth after 72 hours
--- NOTE | 2022-09-13 14:58 | P.PN ---
Subjective Progress Note Date: 09/13/22 I saw the patient at bedside and seems more awake but otherwise no change in condition. I spoke with the patient's daughter (Barbara) yesterday who was at bedside closer to 4-4:30pm and stated in the summer 2021 patient was having memory issues and was so they made her stop drinking and she felt patient has drastic memory loss in short period of time but could not provide accurate timeline and was somewhat inconsistent with timeframe. Objective - Vital Signs Vital signs: Vital Signs Temp 99.4 F 09/13/22 11:30 Pulse 100 09/13/22 11:30 Resp 18 09/13/22 11:30 BP 123/65 09/13/22 11:30 Pulse Ox 97 09/13/22 11:30 FiO2 Intake & Output 09/12/22 09/13/22 09/13/22 18:59 06:59 18:59 Intake Total 200 Balance 200 Intake: Oral 200 Other: Voiding Method Diaper Diaper Diaper Incontinent Incontinent Incontinent # Voids 2 1 1 # Bowel Movements 1 - Exam GENERAL: The patient is lying in bed and does not appear in acute distress. NEUROLOGICAL: Extremely limited because of her condition. Higher mental function: The patient is awake. But no verbalizing or following commands. She babbles at times. Cranial nerves: The pupils are round, equal and reactive to light. She is tracking to right and looks to left. Otherwise could not assess EOM or visual mchugh. Has left nasolabial flattening. Has nasal tone. Otherwise rest is limited because of her condition. Motor: The strength is unable to assess uppers or lowers. She has increase tone in uppers and lowers. Appears right foot drop. Has some tremor of uppers with movement. Cerebellum: Unable to assess. . Sensation: Unable to assess. Reflexes (right/left): 1+ througout. Plantars are mute bilaterally. SOME OF THE WORK-UP DURING THIS HOSPITAL VISIT CONSISTED OF: cbc with diff is unremarkable. Glucose 107 Sodium was 136. Calcium 7.8. Vitamin B12: 655 serum folate >20 CK 31 Ammonia <9 UTI: seem probable UTI Tox screen is not detected. Routine EEG: Is abnormal. The background slowing suggestive of severe encephalopathy. The study is obscured because of the myogenic artifact. Otherwise, there is no focal slowing, epileptiform discharges or seizure on the EEG. CT of the head: No acute intracranial process. Nonspecific white matter changes, likely secondary to chronic small vessel ischemic disease. I personally reviewed CT head and I did not appreciate any acute or subacute ischemic stroke or mass effect. - Labs CBC & Chem 7: 09/09/22 19:20 09/12/22 08:18 Labs: Microbiology - Last 24 Hours (Table) 09/09/22 19:20 Blood Culture - Preliminary Blood No Growth after 72 hours 09/09/22 19:35 Blood Culture - Preliminary Blood No Growth after 72 hours Assessment and Plan Assessment: Increased tone in uppers and lowers with tremors and advanced progressive memory loss and is non-verbal: Also on examination has nasal tone. Unsure exact cause. Rule out neurodegenerative disease vs ?motor neuron disease. Reported History of advanced dementia due to chronic alcohol use. I do not feel her alcohol is only culprit to her dementia with this increase tone. Chronic alcohol use but last alcohol drink was in summer 2021 Decubitus ulcer Plan: I started on Sinement 25-100 1 tab tid to assess if any improvement for concern for Parkinson's disease but it does not seems any improvement. I will start patient on Baclofen 5mg 1 tab bid. Pending MRI Brain and C-spine to rule out any central cause. No seizure on EEG. Continue thiamine 100mg daily. PT and OT are consulted. Will defer the rest of medical management to primary team. Recommend patient to follow-up with neurologist as outpatient within 1-2 weeks for detailed neurological work-up for her dementia and spasticity. Consider following-up with neuromuscular specialist as outpatient if possible. The plan is discussed with the patient's daughter (Barbara) regarding the plan. Will continue to follow. Time with Patient: Less than 30
[2022-09-13] MEDS: BACLOFEN 10 MG TAB PO SCH (17:03)
--- NOTE | 2022-09-13 17:13 | MR ---
EXAMINATION TYPE: MR brain/cspine wo/w DATE OF EXAM: 09/13/2022 2:52 PM CLINICAL INDICATION:Female, 76 years old with history of confusion, spasticity of extremities; COMPARISON: CT brain 09/10/2022 CT brain C-spine 12/08/2021. TECHNIQUE: Multiplanar, multisequence images of the brain and brainstem is performed. Multi planar, multi sequence imaging was performed utilizing: T1-weighted, T2-weighted, and turbo inv ersion recovery imaging of the cervical spine. MR IV Contrast: 5 cc Gadavist FINDINGS: Motion artifact limits evaluation. BRAIN: There is cerebral atrophy with proportional dilation of the ventricular system. Diffusion weig hted images demonstrate no evidence of a recent infarct or other diffusion abnormality. Scattered hig h T2 areas within the periventricular and deep white matter. There is no extra-axial fluid collectio n or significant white matter signal abnormality. Midline structures demonstrate normal morphology. The craniocervical junction appears within normal limits. Post contrast images demonstrate no abnorm al enhancement. The dural venous sinuses appear patent. The visualized sinuses demonstrate high T2 mu cosal thickening in the maxillary sinuses. C-SPINE: Alignment: The cervical vertebral bodies have preserved heights. Alignment has increased lordosis. Bones: High inversion recovery signal seen within the C4 and C5 favored to be on a degenerative basis . Multilevel degenerative disc disease is noted and most pronounced at the C4 C5 C7. vertebral levels .No Abnormal postcontrast enhancement. T3 vertebral body with concave deformity appears chronic. No A bnormal postcontrast enhancement. Cord: The spinal cord is unremarkable with regards to their signal intensity and morphology. No Abnor mal postcontrast enhancement. Discs: Multilevel disc desiccation is present. C2-C3: No significant disc pathology. The spinal canal is patent. No neural foraminal stenosis. C3-C4: No significant disc pathology. The spinal canal is patent. No neural foraminal stenosis. C4-C5: A disc osteophyte complex is present with mild spinal canal stenosis. Bilateral facet and unc overtebral joint arthropathy are present with mild bilateral neural foraminal stenosis. C5-C6: A disc osteophyte complex is present with mild spinal canal stenosis. Bilateral facet and unc overtebral joint arthropathy are present with mild bilateral neural foraminal stenosis. C6-C7: No significant disc pathology. The spinal canal is patent. Limited evaluation of the neural fo ramen secondary motion and patient spinal positioning. C7-T1: No significant disc pathology. The spinal canal is patent. Limited evaluation of the neural f oramen secondary motion and patient spinal positioning. IMPRESSION: Limited exam secondary to patient motion and positioning. 1. No evidence of intracranial mass, acute/subacute infarct, or abnormal enhancement. 2. Nonspecific white matter changes, likely related to small vessel ischemic disease 3. No evidence for disc herniation or significant spinal canal stenosis. 4. Multilevel disc degeneration with associated osteoarthritic changes.
[2022-09-14] MEDS: SODIUM CHLORIDE 0.9% 1,000 ML IV SCH ×2 (05:18→21:58)
[2022-09-14] MEDS: THIAMINE 500 MG in SODIUM CHLORIDE 0.9% 100 ML IVPB SCH ×3 (09:14→21:56)
[2022-09-14] MEDS: HEPARIN SODIUM,PORCINE/PF 5,000 UNIT/0.5 ML SYRINGE SQ SCH ×2 (09:16→21:56)
[2022-09-14] MEDS: ACETAMINOPHEN TAB 325 MG TAB PO PRN (09:17)
[2022-09-14] MEDS: CYANOCOBALAMIN 500 MCG TAB PO SCH (09:17)
[2022-09-14] MEDS: CARBIDOPA-LEVODOPA 25-100 MG 1 EACH TAB PO SCH (09:17)
[2022-09-14] MEDS: BACLOFEN 10 MG TAB PO SCH ×2 (09:17→21:56)
[2022-09-14] MEDS: CHOLECALCIFEROL 25 MCG (1000 IU) TABLET PO SCH (09:18)
[2022-09-14] MEDS: FOLIC ACID 1 MG TAB PO SCH (09:18)
[2022-09-14] MEDS: HYDROPHILIC CREAM 180 GM TUBE TOPICAL SCH (09:18)
--- NOTE | 2022-09-14 11:58 | P.PN ---
Subjective Progress Note Date: 09/14/22 Objective - Vital Signs Vital signs: Vital Signs Temp 98.2 F 09/14/22 05:04 Pulse 78 09/14/22 05:04 Resp 16 09/14/22 05:04 BP 128/61 09/14/22 05:04 Pulse Ox 96 09/14/22 05:04 FiO2 Intake & Output 09/13/22 09/14/22 09/14/22 18:59 06:59 18:59 Output Total 4 Balance -4 Output: Urine 4 Other: Voiding Method Diaper Diaper Incontinent Incontinent # Voids 1 # Bowel Movements 1 - Labs CBC & Chem 7: 09/09/22 19:20 09/12/22 08:18 Labs: Microbiology - Last 24 Hours (Table) 09/09/22 19:20 Blood Culture - Preliminary Blood No Growth after 96 hours 09/09/22 19:35 Blood Culture - Preliminary Blood No Growth after 96 hours Assessment and Plan Plan: #Acute metabolic encephalopathy #Urinary tract infection #Tremors MRI brain and C-spine negative, CT head shows chronic small vessel ischemia. TSH, B12, Folate within normal limits. Ammonia negative. EEG shows severe encephalopathy. Fall precautions. Completed 3 days of Rocephin, Urine culture negative. PT and OT consult. Vimpat discontinued low concerns for seizure. Neurology on board - Speech pathology consulted for swallow evaluation - patient placed on dysphagia level 1 with 1:1 supervision. #Decubitus ulcers Local wound care. Wound care consult. #Mild hyponatremia Continue NS at 50 cc/hr. Stable #Hypoalbuminemia Likely due to poor appetite. Add Ensure. #History of dementia #History of chronic alcohol abuse # End of life care Palliative care consulted. family meeting arranged for this afternoon. Potentially hospice candidate
--- NOTE | 2022-09-14 13:38 | P.PN ---
Subjective Progress Note Date: 09/14/22 The patient is seen at bedside and per nurse is about the same. Per primary team, it seem patient's family are considering hospice. Objective - Vital Signs Vital signs: Vital Signs Temp 98.1 F 09/14/22 11:15 Pulse 79 09/14/22 11:15 Resp 18 09/14/22 11:15 BP 137/64 09/14/22 11:15 Pulse Ox 90 L 09/14/22 11:15 FiO2 Intake & Output 09/13/22 09/14/22 09/14/22 18:59 06:59 18:59 Output Total 4 Balance -4 Output: Urine 4 Other: Voiding Method Diaper Diaper Diaper Incontinent Incontinent Incontinent # Voids 1 # Bowel Movements 1 - Exam GENERAL: The patient is lying in bed and does not appear in acute distress. NEUROLOGICAL: Extremely limited because of her condition. Higher mental function: The patient is awake. He correctly verbalized her name today. Otherwise no verbalizing or following commands. For most part she babbles at times. Cranial nerves: The pupils are round, equal and reactive to light. She is tracking to right and looks to left. Otherwise could not assess EOM or visual mchugh. Has left nasolabial flattening. Has severe nasal tone. Otherwise rest is limited because of her condition. Motor: The strength is unable to assess uppers or lowers. She has increase tone in uppers and lowers and appear spastic and at time feel she is resisting. Appears right foot drop. Has some tremor of uppers with movement. Cerebellum: Unable to assess. . Sensation: Unable to assess. Reflexes (right/left): 1+ througout. Plantars are mute bilaterally. SOME OF THE WORK-UP DURING THIS HOSPITAL VISIT CONSISTED OF: cbc with diff is unremarkable. Glucose 107 Sodium was 136. Calcium 7.8. Vitamin B12: 655 serum folate >20 CK 31 Ammonia <9 UTI: seem probable UTI Tox screen is not detected. Routine EEG: Is abnormal. The background slowing suggestive of severe encephalopathy. The study is obscured because of the myogenic artifact. Otherwise, there is no focal slowing, epileptiform discharges or seizure on the EEG. CT of the head: No acute intracranial process. Nonspecific white matter changes, likely secondary to chronic small vessel ischemic disease. I personally reviewed CT head and I did not appreciate any acute or subacute ischemic stroke or mass effect. - Labs CBC & Chem 7: 09/09/22 19:20 09/12/22 08:18 Labs: Microbiology - Last 24 Hours (Table) 09/09/22 19:20 Blood Culture - Preliminary Blood No Growth after 96 hours 09/09/22 19:35 Blood Culture - Preliminary Blood No Growth after 96 hours Assessment and Plan Assessment: Increased tone in uppers and lowers and appears spastic with tremors and advanced progressive memory loss and most part not verbalizing to minimal verbalizing if any: Also on examination has nasal tone. Unsure exact cause. Rule out ?motor neuron disease vs neurodegenerative disease (does not appear Parkinson's disease). Reported History of advanced dementia due to chronic alcohol use. I do not feel her alcohol is only culprit to her dementia with this increase tone. Chronic alcohol use but last alcohol drink was in summer 2021 Decubitus ulcer Plan: MRI Brain and C-spine: 4 as limited exam secondary due to patient motion and positioning. No evidence of intracranial mass, acute/subacute infarct or abnormal enhancement. Nonspecific white matter changes, likely related to small vessel ischemic disease. No evidence for disc herniation or significant spinal canal stenosis. Multilevel disc degeneration with associated osteoarthritic changes. I personally reviewed the MRI and agree with report. Continue Baclofen 5mg 1 tab bid. No seizure on EEG. I stopped Sinement since does not appear Parkinon's disease Continue thiamine 100mg daily. PT and OT are consulted. Will defer the rest of medical management to primary team. Recommend patient to follow-up with neurologist as outpatient within 1-2 weeks for detailed neurological work-up for her dementia and spasticity. Consider following-up with neuromuscular specialist as outpatient for further work- up/management. The plan is discussed with the patient's primary team. According to the primary team, the family is considering hospice. Otherwise no additional work-up is needed. Please notify neurology team if any further concerns. Dr. Wheeler will start neurology service tomorrow A.M. then Dr. Iniguez will resume service Saturday A.M. Time with Patient: Less than 30
--- NOTE | 2022-09-14 15:46 | P.CONS ---
History of Present Illness - Reason for Consult Consult date: 09/14/22 Goals of care Requesting physician: Cody Ch - Chief Complaint Abdominal pain/AMS - History of Present Illness The patient is a 76 year old female with PMH of advanced dementia attributed to chronic alcohol abuse, decubitus ulcers on both buttock and coccyx. She presented to the ED on 09/09/22 with altered mentation. Patient is unable to communicate effectively and majority of history is obtained from documentation. She was recently admitted on December/2021 for altered mentation and hyponatremia, thought to be related to dehydration and beer potomania, treated with IV fluids and discharged to SNF. Patient is unable to describe her symptoms effectively, mumbling, but appears comfortable. Apparently, she had some abdominal pain which prompted family to bring her to the ED. In the ED, her vital signs are stable. CBC was unremarkable. CMP showed sodium 136, chloride 108, creatinine of 0.43, glucose 107, albumin at 3.1 and calcium is 7.8. Lactic acid negative. Troponin negative. Urinalysis showed large leukocyte esterase. Chest x-ray was negative. KUB was negative. Patient was admitted for altered mentation and treatment a UTI. MRI brain and C-spine negative, CT head shows chronic small vessel ischemia. EEG shows severe encephalopathy. She has now completed 3 days of Rocephin, Urine culture negative. Review of Systems Constitutional: Reports as per HPI Past Medical History Past Medical History: Unable to Obtain Additional Past Medical History / Comment(s): unable to ambulate since early April 2022, unable to form a sentence for the past 2-3 weeks, increased confusion, x-etoh (quit drinking in july 2021, used to drink 12 beers daily) History of Any Multi-Drug Resistant Organisms: None Reported Past Surgical History: Unable to Obtain Past Psychological History: No Psychological Hx Reported Smoking Status: Never smoker Past Alcohol Use History: Occasional Past Drug Use History: None Reported - Past Family History Father Additional Family Medical History / Comment(s): alcoholism Mother Additional Family Medical History / Comment(s): alcholism Medications and Allergies Home Medications Medication Instructions Recorded Confirmed Type Cholecalciferol [Vitamin D3 (25 50 mcg PO DAILY 09/09/22 09/09/22 History Mcg = 1000 Iu)] Cyanocobalamin (Vitamin B-12) 1,000 mcg PO DAILY 09/09/22 09/09/22 History [Vitamin B-12] Folic Acid 0.8 mg PO DAILY 09/09/22 09/09/22 History Allergies Allergy/AdvReac Type Severity Reaction Status Date / Time No Known Allergies Allergy Verified 09/09/22 20:00 Physical Exam Vitals: Vital Signs Temp Pulse Resp BP BP Pulse Ox 09/14/22 11:15 98.1 F 79 18 137/64 90 L 09/14/22 05:04 98.2 F 78 16 128/61 96 09/13/22 20:00 16 09/13/22 19:32 98.1 F 98 17 136/78 95 Intake and Output 09/13/22 09/14/22 09/14/22 22:59 06:59 14:59 Output Total 4 Balance -4 Output: Urine 4 Other: Voiding Method Diaper Incontinent General: Well developed, No acute distress. Chronically ill appearing HEENT: Head is atraumatic, normocephalic. Sclera are clear. CV: Heart regular in rate and rhythm positive S1 and S2. No murmurs. Lungs: Clear to auscultation bilaterally. Respirations even and nonlabored. On RA Abdomen/GI: Soft.No guarding, rigidity, or abdominal tenderness. Musculoskeletal/ Extremities: +muscle atrophy, upper and lower extremities appear spastic Skin: Warm and dry, Sacral and b/l buttock pressure ulcers Neurologic: Awake, alert, non-verbal Results CBC & Chem 7: 09/09/22 19:20 09/12/22 08:18 Labs: Microbiology - Last 24 Hours (Table) 09/09/22 19:20 Blood Culture - Preliminary Blood No Growth after 96 hours 09/09/22 19:35 Blood Culture - Preliminary Blood No Growth after 96 hours Chest x-ray: report reviewed Abdominal x-ray: report reviewed CT Scan - head: report reviewed MRI - head: report reviewed Assessment and Plan Assessment: Symptoms * Pain - 0/10, Continue Tylenol prn * Muscle spasms - Continue Baclofen * Fatigue - No * SOB - No, on RA * Insomnia - NO * N/V - Occasional, continue Zofran * Anxiety - No * Depression - LEE * Confusion - LEE * Agitation - No * Appetite/weight loss - Decreased appetite, no recent weight loss * Dysphagia - Yes, SP[employer]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 Patient on a level 1 pureed diet with honey thick liquids. 1:1 feed, aspiration precaution. Continue Ensure TIDWM * Constipation - No, LBM 09/13 * Incontinence - Yes, wears brief * Itch - No * Cough - No Plan: Summary/Goals - Meeting held with the patient, 2 daughters present (Shannan and Barbara), and a third daughter via telephone. The patient has send stage demen tia. She is bed bound with pressure ulcers. She is non-verbal, unable to feed herself, and is incontinent. Her acute care nursing assistant and 2 daughters care for her. They have noticed she has declined mentally and physically over the last couple months. She is not even able to hold a cup like she used to. She has been declined by a [facility]. Palliative care and hospice philosophies and services explained. The daughters were tearful but stated that hospice is more aligned with their goals for their mom. They would like to focus on comfort and quality of life. Hospice consult placed. Recommendations - Home with hospice Advanced Directives - None on file Thank you for this consultation Andria Urbina [facility] Palliative Care [facility] [id number] Email: [email or web address] Time with Patient: Greater than 30
[2022-09-15] MEDS: SODIUM CHLORIDE 0.9% 1,000 ML IV SCH (05:39)
[2022-09-15] MEDS: BACLOFEN 10 MG TAB PO SCH ×2 (09:03→21:01)
[2022-09-15] MEDS: FOLIC ACID 1 MG TAB PO SCH (09:03)
[2022-09-15] MEDS: HEPARIN SODIUM,PORCINE/PF 5,000 UNIT/0.5 ML SYRINGE SQ SCH ×2 (09:03→21:01)
[2022-09-15] MEDS: CYANOCOBALAMIN 500 MCG TAB PO SCH (09:03)
[2022-09-15] MEDS: CHOLECALCIFEROL 25 MCG (1000 IU) TABLET PO SCH (09:03)
[2022-09-15] MEDS: THIAMINE 500 MG in SODIUM CHLORIDE 0.9% 100 ML IVPB SCH ×3 (09:04→21:02)
[2022-09-15] MEDS: HYDROPHILIC CREAM 180 GM TUBE TOPICAL SCH (09:04)
--- NOTE | 2022-09-15 15:54 | P.PN ---
Subjective Progress Note Date: 09/15/22 Principal diagnosis: change in mental status Patient is comfortable, no issues overnight. Objective - Vital Signs Vital signs: Vital Signs Temp 99.1 F 09/15/22 13:00 Pulse 80 09/15/22 13:00 Resp 18 09/15/22 13:00 BP 133/81 09/15/22 13:00 Pulse Ox 95 09/15/22 13:00 FiO2 Intake & Output 09/14/22 09/15/22 09/15/22 18:59 06:59 18:59 Weight 48.081 kg Other: Voiding Method Diaper Diaper Diaper Incontinent Incontinent Incontinent # Voids 1 2 1 # Bowel Movements 1 - Exam General: non toxic, no distress, appears at stated age Derm: warm, dry Head: atraumatic, normocephalic, symmetric Eyes: EOMI, no lid lag, anicteric sclera Mouth: no lip lesion, mucus membranes moist Cardiovascular: S1S2 reg, no murmur Lungs: CTA bilateral, no rhonchi, no rales , no accessory muscle use Abdominal: soft, nontender to palpation, no guarding, no appreciable organomegaly Ext: no gross muscle atrophy, no edema, no contractures Neuro: Unable to assess Psych: Unable to assess - Labs CBC & Chem 7: 09/09/22 19:20 09/12/22 08:18 Labs: Microbiology - Last 24 Hours (Table) 09/09/22 19:20 Blood Culture - Preliminary Blood No Growth after 120 hours 09/09/22 19:35 Blood Culture - Preliminary Blood No Growth after 120 hours Assessment and Plan Plan: #Acute metabolic encephalopathy #Urinary tract infection #Tremors MRI brain and C-spine negative, CT head shows chronic small vessel ischemia. TSH, B12, Folate within normal limits. Ammonia negative. EEG shows severe encephalopathy. Fall precautions. Completed 3 days of Rocephin, Urine culture negative. PT and OT consult. Vimpat discontinued low concerns for seizure. Neurology on board - Speech pathology consulted for swallow evaluation - patient placed on dysphagia level 1 with 1:1 supervision. #Decubitus ulcers Local wound care. Wound care consult. #Mild hyponatremia Continue NS at 50 cc/hr. Stable #Hypoalbuminemia Likely due to poor appetite. Ensure. #History of dementia #History of chronic alcohol abuse # End of life care/hospice Palliative care consulted. family opting for hospice, family declined [facility] hospice and want [facility] hospice, unable to reach family 09/15. Will reattempt.
[2022-09-16] MEDS: BACLOFEN 10 MG TAB PO SCH ×2 (09:20→20:18)
[2022-09-16] MEDS: CHOLECALCIFEROL 25 MCG (1000 IU) TABLET PO SCH (09:20)
[2022-09-16] MEDS: CYANOCOBALAMIN 500 MCG TAB PO SCH (09:20)
[2022-09-16] MEDS: ACETAMINOPHEN TAB 325 MG TAB PO PRN (09:20)
[2022-09-16] MEDS: FOLIC ACID 1 MG TAB PO SCH (09:20)
[2022-09-16] MEDS: HEPARIN SODIUM,PORCINE/PF 5,000 UNIT/0.5 ML SYRINGE SQ SCH ×2 (09:20→20:19)
[2022-09-16] MEDS: HYDROPHILIC CREAM 180 GM TUBE TOPICAL SCH (09:21)
[2022-09-16] MEDS: THIAMINE 500 MG in SODIUM CHLORIDE 0.9% 100 ML IVPB SCH ×3 (09:23→21:30)
--- NOTE | 2022-09-16 12:03 | P.PN ---
Subjective Progress Note Date: 09/16/22 Principal diagnosis: change in mental status Patient is comfortable, no issues overnight. Objective - Vital Signs Vital signs: Vital Signs Temp 97.2 F L 09/16/22 04:37 Pulse 81 09/16/22 04:37 Resp 16 09/16/22 04:37 BP 148/77 09/16/22 04:37 Pulse Ox 95 09/16/22 04:37 FiO2 Intake & Output 09/15/22 09/16/22 09/16/22 18:59 06:59 18:59 Intake Total 430 Balance 430 Intake: Intake, IV Titration 400 Amount Sodium Chloride 0.9% 1, 400 000 ml @ 50 mls/hr IV . Q20H [facility] Rx#:[id number] Oral 30 Other: Voiding Method Diaper Diaper Diaper Incontinent Incontinent Incontinent # Voids 1 2 - Exam General: non toxic, no distress, appears at stated age Derm: warm, dry Head: atraumatic, normocephalic, symmetric Eyes: EOMI, no lid lag, anicteric sclera Mouth: no lip lesion, mucus membranes moist Cardiovascular: S1S2 reg, no murmur Lungs: CTA bilateral, no rhonchi, no rales , no accessory muscle use Abdominal: soft, nontender to palpation, no guarding, no appreciable organomegaly Ext: no gross muscle atrophy, no edema, no contractures Neuro: Unable to assess Psych: Unable to assess - Labs CBC & Chem 7: 09/09/22 19:20 09/12/22 08:18 Labs: Microbiology - Last 24 Hours (Table) 09/09/22 19:20 Blood Culture - Final Blood No Growth after 144 hours 09/09/22 19:35 Blood Culture - Final Blood No Growth after 144 hours Assessment and Plan Plan: #Acute metabolic encephalopathy #Urinary tract infection #Tremors MRI brain and C-spine negative, CT head shows chronic small vessel ischemia. TSH, B12, Folate within normal limits. Ammonia negative. EEG shows severe encephalopathy. Fall precautions. Completed 3 days of Rocephin, Urine culture negative. PT and OT consult. Vimpat discontinued low concerns for seizure. Neurology on board - Speech pathology consulted for swallow evaluation - patient placed on dysphagia level 1 with 1:1 supervision. #Decubitus ulcers Local wound care. Wound care consult. #Mild hyponatremia Continue NS at 50 cc/hr. Stable #Hypoalbuminemia Likely due to poor appetite. Ensure. #History of dementia #History of chronic alcohol abuse # End of life care/hospice Palliative care consulted. family opting for hospice, family declined [facility] hospice and want [facility] hospice, case d/w daughter on 09/16. Stated they are meeting with hospice today at 4:00 PM.
[2022-09-16] MEDS: SODIUM CHLORIDE 0.9% 1,000 ML IV SCH (16:00)
[2022-09-17] MEDS: FOLIC ACID 1 MG TAB PO SCH (09:18)
[2022-09-17] MEDS: HEPARIN SODIUM,PORCINE/PF 5,000 UNIT/0.5 ML SYRINGE SQ SCH (09:18)
[2022-09-17] MEDS: BACLOFEN 10 MG TAB PO SCH (09:18)
[2022-09-17] MEDS: THIAMINE 500 MG in SODIUM CHLORIDE 0.9% 100 ML IVPB SCH ×2 (09:18→17:30)
[2022-09-17] MEDS: HYDROPHILIC CREAM 180 GM TUBE TOPICAL SCH (09:19)
[2022-09-17] MEDS: CHOLECALCIFEROL 25 MCG (1000 IU) TABLET PO SCH (09:19)
[2022-09-17] MEDS: CYANOCOBALAMIN 500 MCG TAB PO SCH (09:19)
--- NOTE | 2022-09-17 10:49 | P.DS ---
Providers Date of admission: 09/09/22 21:12 Expected date of discharge: 09/17/22 Attending physician: Janine Astudillo MD Consults: 09/09/22 21:12 Consult Physician Routine Consulting Provider: Sunny Iniguez Consult Reason/Comments: Dementia Do you want consulting provider notified?: Yes 09/12/22 08:53 Consult to Palliative Care Routine Consulting Provider: Andria Urbina Consult Reason/Comments: GO Do you want consulting provider notified?: Yes Primary care physician: [facility] Course: Discharge Diagnosis: Hospice care, palliative care was consulted and family opted for comfort measures only under Hospice care secondary to advanced dementia attributed to chronic long-term alcohol abuse. Patient being discharged to Hospice House under care of [facility] services per family's request. Arrangements have been made by case management and [facility]. 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 Tremors Decubitus ulcers Mild hyponatremia Hypoalbuminemia History of advanced dementia History of chronic alcohol abuse Hospital Course: Patient is a very pleasant 76-year-old female with a past medical history of a dvanced dementia attributed to long-standing history of chronic alcohol abuse resulting in nonverbal and bedbound status at baseline and multiple decubitus ulcers. Patient presented to the emergency department on 09/09/22 with a chief complaint of worsening mentation. She was previously admitted December 2021 for similar complaints and was found to have altered mentation and hyponatremia thought to be resulting from Beer Potomania. Upon arrival to our facility patient underwent full evaluation. CBC and CMP completed showing no significant abnormalities with the exception of hypoalbuminemia with albumin of 3.1. Urinalysis was questionable for possible infection with WBC count of 14 and positive for leukocyte esterase. Urine drug screen negative. CT head was negative for acute intercranial process. KUB negative showing nonacute abdomen. Chest x-ray negative for acute cardiopulmonary process revealing clearing of previous small pleural effusions Patient was started on antibiotics for treatment of UTI and admitted under our services with consultation to neurology. Vitamin B12, folate, and TSH all completed showing normal findings. Ammonia less than 9. EEG completed and was abnormal showing background slowing suggestive of severe encephalopathy, there was no focal slowing or leapt a form discharges or seizure activity reported. Patient continued with no improvement. MRI brain was completed revealing no evidence of intracranial mass, acute/subacute infarct, or abnormal enhancement but did reveal nonspecific white matter changes likely related to small vessel ischemic disease. MRI cervical spine showing multilevel disc degeneration with associated osteoarthritic changes, no evidence for disc herniation or significant spinal canal stenosis. Palliative care was consulted on 09/14/22. Family then met with hospice services and opted for comfort measures only under Hospice care secondary to advanced dementia attributed to chronic long-term alcohol abuse. Patient being discharged to Hospice House under care of [facility] services per family's request. Arrangements have been made by case management and [facility]. Physical examination: Patient seen and examined at bedside. Vital signs reviewed and stable. General: Chronically ill-appearing, debilitated. Derm: Skin warm and dry, normal coloration for ethnicity. Head: Atraumatic, normocephalic and symmetric. Eyes: EOMs intact, no lid lag, and anicteric sclera Mouth: no lip lesions, mucus membranes moist Cardiovascular: regular rate and rhythm with normal S1S2, systolic murmur, positive posterior tibial pulses bilaterally, and cap refill < 2 seconds. Lungs: Respirations even, regular, and unlabored on room air. Lungs CTA bilaterally, no rhonchi, no rales, no wheezing, and no accessory muscle usage. Abdominal: Soft, nontender to palpation, no guarding, no appreciable organomegaly Ext: ROM intact. No gross muscle atrophy, no edema, bilateral upper and lower extremity contractures. Neuro/psych: Speech incomprehensible. Patient awake and alert to self only, long-standing history of nonverbal. Patient will attempt some communication however words incomprehensible. Face symmetrical. Patient is nonverbal and bedbound at baseline. A total of 36 minutes of time were spent preparing this complex discharge summary. Pt was discharged on 09/17/22 at 10:47 AM. Plan - Discharge Summary Discharge Rx Participant: No New Discharge Prescriptions: Discontinued Cyanocobalamin (Vitamin B-12) [Vitamin B-12] 1,000 mcg PO DAILY Cholecalciferol [Vitamin D3 (25 Mcg = 1000 Iu)] 50 mcg PO DAILY Folic Acid 0.8 mg PO DAILY Follow up Appointment(s)/Referral(s): [facility], [NON-STAFF] - 1-2 Days Geronimo Rios DO [Primary Care Provider] - 1-2 days Activity/Diet/Wound Care/Special Instructions: Activity: As tolerated. Diet: Pleasure feeds Special Instructions: Patient being discharged to hospice house under [facility] services per family's request. Arrangements have been made by case management and [facility]. Thank you for allowing us to participate in your care, it was truly a pleasure having you for our patient!!! Discharge Disposition: HOME WITH HOSPICE
[2022-09-17 11:38] VITALS: BP 138/74; PULSE 68; RESP 18; TEMP 98.2
== END 2022-09-17 18:33 | disposition hospice, inpatient (51) | DRG 71 ==
LOC: EC 19:10 → 5NMEDONC 21:12
PROVIDERS: ADMIT Internal Medicine; ATTEND Internal Medicine
DX: G93.41 Metabolic encephalopathy (principal); E87.1 Hypo-osmolality and hyponatremia; I67.89 Other cerebrovascular disease; F02.83 Dementia in other diseases classified elsewhere, unspecified severity, with mood disturbance; F10.27 Alcohol dependence with alcohol-induced persisting dementia; L89.159 Pressure ulcer of sacral region, unspecified stage; E86.0 Dehydration; L89.312 Pressure ulcer of right buttock, stage 2; L89.321 Pressure ulcer of left buttock, stage 1; E88.09 Other disorders of plasma-protein metabolism, not elsewhere classified; Z66 Do not resuscitate; Z51.5 Encounter for palliative care; Z28.310 Unvaccinated for COVID-19; S30.810A Abrasion of lower back and pelvis, initial encounter; M21.371 Foot drop, right foot; M50.30 Other cervical disc degeneration, unspecified cervical region; M62.838 Other muscle spasm; R32 Unspecified urinary incontinence; F32.A Depression, unspecified; Z79.899 Other long term (current) drug therapy; Z74.01 Bed confinement status; W19.XXXA Unspecified fall, initial encounter; Z63.72 Alcoholism and drug addiction in family; Z81.1 Family history of alcohol abuse and dependence
CPT/HCPCS: 36415; 70450; 70553; 71046; 72156; 74018; 80048; 80053; 80306; 81001; 82140; 82150; 82550; 82607; 82746; 83605; 83690; 84443; 84484; 85025; 87040; 87086; 95816; 96361; 96365; 96376; 99284